=== PATIENT | female | born 1940 | race Asian ===

== ENCOUNTER 2018-06-10 09:20 | Inpatient (IN) | payer MEDICARE, OTHER ==
[~2018-06-10] VITALS: Ht 154.9 cm; Wt 68.9 kg
[~2018-06-10 09:20] MED LIST: ACAR50TA PO; ASPI-903 PO; ATOR20TA38 PO; CLON-379 PO; CLOP75TA27 PO; DOCU250C58 PO; DONE5TAB46 PO; ESCI5TAB PO; ISOS10TA2 PO; LANT3I SC; LEVO125T PO; LYR75 PO; MEMA10TA PO; METF500T PO; MULTI PO; NOVO3I SC; VALS80TA2 PO
[2018-06-10] MEDS ORDERED: SODIUM CHLORIDE 0.9% 1L BAG IV* STA (09:36)
[2018-06-10] MEDS ORDERED: MAGN400O19 PO (10:27)
[2018-06-10] MEDS ORDERED: ACET-2047 PO (10:28)
[2018-06-10] MEDS ORDERED: CEFEPIME 2GM/50 ML (PMX) 50 ML IVPB STA (10:29)
[2018-06-10] MEDS ORDERED: NEPH PO ×2 (10:29→10:31)
[2018-06-10] MEDS ORDERED: VANCOMYCIN 1 GM (PMX) 250 ML IVPB ONE (10:30)
[2018-06-10] MEDS ORDERED: CYAN100T PO (10:32)
[2018-06-10] MEDS ORDERED: ERGO500013 PO (10:33)
[2018-06-10] MEDS ORDERED: AMIN887L6 PO (10:33)
[2018-06-10] MEDS ORDERED: LINA5TAB PO (10:34)
[2018-06-10] MEDS ORDERED: CALC500T91 PO (10:34)
[2018-06-10] MEDS ORDERED: BISA-57 PO (10:35)
[2018-06-10] MEDS ORDERED: DEXL60CA2 PO (10:36)
[2018-06-10] MEDS ORDERED: DONE10TA7 PO (10:36)
[2018-06-10] MEDS ORDERED: FOLI-49 PO (10:36)
[2018-06-10] MEDS ORDERED: ISM20 PO (10:40)
[2018-06-10] MEDS ORDERED: LEVEM SUBCUTANE (10:42)
[2018-06-10] MEDS ORDERED: LEVO300T5 PO (10:42)
[2018-06-10] MEDS ORDERED: LOSA25TA12 PO (10:43)
[2018-06-10] MEDS ORDERED: NOVO3I SC (10:44)
[2018-06-10] MEDS ORDERED: ATEN-51 PO (10:45)
[2018-06-10] MEDS ORDERED: ARIP2TAB17 PO (10:45)
[2018-06-10] MEDS ORDERED: CRAN425C6 PO (10:46)
[2018-06-10] MEDS ORDERED: CLOP75TA27 PO (10:46)
--- NOTE | 2018-06-10 11:23 | ERD ---
ER Documentation Chief Complaint Chief Complaint ALOC since last night baseline AOX1 HPI 77-year-old female history of diabetes, hypertension, coronary artery disease status post CABG, hypothyroidism, hyperlipidemia, Alzheimer's disease, schizophrenia, dementia and chronic kidney disease presents to the ED via rescue ambulance from [facility] correction facility for evaluation of altered mental status. Apparently patient is usually alert, oriented x1 and able to ambulate with some assistance but today was found in bed not responsive. No documented prodrome. No vomiting or diarrhea. No fevers. Limited history is and obtained entirely from transferring paramedics and review of prior medical records as patient is unable to provide any history due to her cognitive impairment. Prehospital Accu-Chek was 52 mg/dL and 250 cc of D10 was administered without acute change in mental status. Narcan was also given without improvement. ROS All systems reviewed and are negative except as per history of present illness. Medications Home Meds Active Scripts Cephalexin* (Cephalexin*) 500 Mg Capsule, 500 MG PO BID for 3 Days, #6 CAP Prov:DEMETRIO HART MD 06/13/18 Mupirocin* (Bactroban*) 2% -22 Gram Oint...g., 1 APPLIC TOP BID for 3 Days, #1 TUB Prov:DEMETRIO HART MD 06/13/18 Doxycycline* (Vibramycin*) 100 Mg Tab, 100 MG PO BID for 3 Days, #7 TAB Prov:DEMETRIO HART MD 06/13/18 Insulin Detemir (Levemir) 100 Unit/1 Ml Vial, 20 UNITS SUBCUTANE QHS for 30 Days, #1 VIAL Prov:DEMETRIO HART MD 06/13/18 Pregabalin* (Lyrica*) 75 Mg Capsule, 75 MG PO BID for 30 Days, CAP Prov:ANA NATH 11/29/15 Reported Medications Cranberry Extract (Cranberry) 425 Mg Capsule, 425 MG PO DAILY, CAP 06/10/18 Clopidogrel Bisulfate (Clopidogrel) 75 Mg Tablet, 75 MG PO DAILY, #30 TAB 06/10/18 Atenolol* (Atenolol*) 25 Mg Tablet, 25 MG PO DAILY, #30 TAB HOLD IF SBP<115 OR HR<60 06/10/18 Aripiprazole* (Abilify*) 2 Mg Tablet, 2 MG PO QHS, #30 TAB 06/10/18 Losartan Potassium* (Losartan Potassium*) 25 Mg Tablet, 12.5 MG PO DAILY, TAB HOLD IF SBP<115 06/10/18 Levothyroxine Sodium* (Levothyroxine Sodium*) 300 Mcg Tablet, 300 MCG PO BEFORE BREAKFAST, #30 TAB 06/10/18 Isosorbide Mononitrate* (Isosorbide Mononitrate*) 20 Mg Tablet, 10 MG PO BID, TAB HOLD IF SBP<115 06/10/18 Folic Acid* (Folic Acid*) 1 Mg Tablet, 1 MG PO DAILY, TAB 06/10/18 Donepezil* (Donepezil*) 10 Mg Tablet, 10 MG PO DAILY, #30 TAB 06/10/18 Dexlansoprazole (Dexilant) 60 Mg Cap..mp, 60 MG PO AC BREAKFAST, #30 CAP 06/10/18 Bisacodyl* (Dulcolax*) 5 Mg Tablet.dr, 10 MG PO DAILY PRN for CONSTIPATION, TAB 06/10/18 Linagliptin (TRADJENTA) 5 Mg Tablet, 5 MG PO DAILY, TAB 06/10/18 Calcium Carbonate ([id number]) 500 Mg Tablet, 500 MG PO DAILY, TAB 06/10/18 Amino Acids/Protein Hydrolys (PRO-STAT AWC LIQUID) 887 Ml Liquid, 30 ML PO DAILY 06/10/18 Ergocalciferol (Vitamin D2) (VITAMIN D2) 50,000 Unit Capsule, 44254 UNIT PO WEEKLY, CAP 06/10/18 Cyanocobalamin* (Vitamin B12*) 100 Mcg Tab, 200 MCG PO DAILY, TAB 06/10/18 Multivit/Ca Carb/B Cmplx/Fa* (Pili-Remberto*) 1 Tab Tab, 1 TAB PO DAILY, TAB 06/10/18 Acetaminophen* (Acetaminophen*) 650 Mg Tablet, 650 MG PO Q4 PRN for PAIN, #30 TAB 06/10/18 Magnesium Hydroxide* (Milk Of Magnesia*) 400 Mg/5 Ml Oral.susp, 30 ML PO DAILY PRN for CONSTIPATION, ML 06/10/18 Atorvastatin Calcium* (Atorvastatin Calcium*) 20 Mg Tablet, 20 MG PO QHS, #30 TAB 11/27/15 Acarbose* (Precose*) 50 Mg Tablet, 50 MG PO WITH MEALS, TAB 11/27/15 Discontinued Reported Medications Insulin Aspart* (Novolog Insulin Pen*) 100 Unit/Ml Soln, 0 SC .SLIDING SCALE AC, EA 06/10/18 Multivit/Ca Carb/B Cmplx/Fa* (Pili-Remberto*) 1 Tab Tab, 1 TAB PO DAILY, TAB 06/10/18 Clopidogrel Bisulfate (Clopidogrel) 75 Mg Tablet, 75 MG PO DAILY, #30 TAB 11/27/15 Memantine* (Namenda*) 10 Mg Tablet, 10 MG PO BID, #60 TAB 11/27/15 Escitalopram Oxalate* (Lexapro*) 5 Mg Tablet, 5 MG PO DAILY, #30 TAB 11/27/15 Insulin Aspart* (Novolog Insulin Pen*) 100 Unit/Ml Soln, 0 SC .SLIDING SCALE AC, EA 11/27/15 Docusate Sodium* (Colace*) 250 Mg Capsule, 250 MG PO BID, #60 CAP 11/27/15 Aspirin* (Aspirin* Chew) 81 Mg Tab.chew, 81 MG PO DAILY, TAB.CHEW 11/27/15 Clonidine Hcl* (Clonidine Hcl*) 0.1 Mg Tab, 0.1 MG PO Q6 PRN for ELEVATED BLOOD PRESSURE, TAB 11/27/15 Isosorbide Dinitrate* (Isordil*) 10 Mg Tablet, 30 MG PO BID, TAB 11/27/15 Donepezil* (Aricept*) 5 Mg Tablet, 5 MG PO DAILY, TAB 11/27/15 Valsartan* (Diovan*) 80 Mg Tablet, 80 MG PO DAILY, TAB 11/27/15 Discontinued Scripts Insulin Glargine* (Lantus*) 100 Unit/Ml Soln, 28 UNIT SC QHS for 30 Days Prov:FITO WHEELER NP 12/01/15 Insulin Aspart* (Novolog Insulin Pen*) 100 Unit/Ml Soln, 0 UNIT SC WITH MEALS BEDTIME for 30 Days Prov:ANA NATH 11/29/15 Levothyroxine Sodium* (Synthroid*) 125 Mcg Tablet, 125 MCG PO DAILY@06 for 30 Days, TAB Prov:ANA NATH 11/29/15 Metformin Hcl (Glucophage) 500 Mg Tablet, 500 MG PO AC BREAKFAST DINNER for 30 Days, TAB Prov:ANA NATH 11/29/15 Multivitamins* (Theragran*) 1 Tab Tab, 1 TAB PO QHS for 30 Days, TAB Prov:ANA NATH 11/29/15 Allergies Allergies: Coded Allergies: propranolol (Verified Allergy, Severe, 06/10/18) PMhx/Soc Reviewed reviewed in chart. As per HPI. History of Surgery: Yes (CABG) Anesthesia Reaction: No Hx Neurological Disorder: Yes (dementia) Hx Respiratory Disorders: No Hx Cardiac Disorders: Yes Hx Psychiatric Problems: Yes Hx Miscellaneous Medical Probl: Yes (CAD s/p CABG, , hypothyroidism, HTN, Diabetes, Depression) Hx Alcohol Use: No Hx Substance Use: No Hx Tobacco Use: No Smoking Status: Never smoker FmHx Unknown. Unobtainable due to patient's cognitive impairment. Physical Exam Vitals Temperature 94.7. Pulse 70. Respirations 16. Blood pressure 163/73. O2 saturation 96% on room air. Physical Exam Const: Sleepy but opens her eyes to voice. Does not follow commands. Head: Atraumatic Eyes: Normal Conjunctiva ENT: Normal External Ears, Nose and Mouth. Neck: Nontender. No meningismus. No JVD. No meningismus. Resp: Clear to auscultation bilaterally Cardio: Regular rate and rhythm, no murmurs Abd: Soft, non tender, non distended. Normal bowel sounds. No rebound or guarding. No masses. Skin: No petechiae or rashes mild erythema. On both heels. Back: No midline or flank tenderness Ext: No cyanosis, or edema Neur: Sleepy but arousable. Does not follow commands. Moves all extremities spontaneously. Result Diagram: 06/12/1852506/12/18525 Results 24 hrs Laboratory Tests Test 06/10/18 09:46 06/10/18 09:48 06/10/18 10:05 06/10/18 10:35 POC Venous Lactate 2.4 mmol/L Bedside Glucose 204 mg/dL 189 mg/dL White Blood Count 5.0 10^3/ul Red Blood Count 4.32 10^6/ul Hemoglobin 12.1 g/dl Hematocrit 37.7 % Mean Corpuscular 87.3 fl Volume Mean Corpuscular 28.0 pg Hemoglobin Mean Corpuscular 32.1 g/dl Hemoglobin Concent Red Cell 12.7 % Distribution Width Platelet Count 119 10^3/UL Mean Platelet 10.3 fl Volume Immature 0.400 % Granulocytes % Neutrophils % 53.6 % Lymphocytes % 36.1 % Monocytes % 8.7 % Eosinophils % 1.0 % Basophils % 0.2 % Nucleated Red 0.0 /100WBC Blood Cells % Immature 0.020 10^3/ul Granulocytes # Neutrophils # 2.7 10^3/ul Lymphocytes # 1.8 10^3/ul Monocytes # 0.4 10^3/ul Eosinophils # 0.1 10^3/ul Basophils # 0.0 10^3/ul Nucleated Red 0.0 10^3/ul Blood Cells # Prothrombin Time 12.6 Sec Prothrombin Time 1.0 Ratio INR International 0.93 Normalized Ratio Activated 28.[address] Time Urine Color STRAW Urine Clarity CLEAR Urine pH 7.0 Urine Specific 1.002 [place] Urine Ketones NEGATIVE mg/dL Urine Nitrite NEGATIVE mg/dL Urine Bilirubin NEGATIVE mg/dL Urine Urobilinogen NEGATIVE mg/dL Urine Leukocyte NEGATIVE Aneta/ul Esterase Urine Microscopic 0 /HPF RBC Urine Microscopic 2 /HPF WBC Urine Bacteria FEW /HPF Urine Hemoglobin NEGATIVE mg/dL Urine Glucose 3+ mg/dL Urine Total NEGATIVE mg/dl Protein Sodium Level 138 mmol/L Potassium Level 3.7 mmol/L Chloride Level 101 mmol/L Carbon Dioxide 26 mmol/L Level Anion Gap 11 Blood Urea 31 mg/dl Nitrogen Creatinine 1.20 mg/dl Est Glomerular mL/min Filtrat Rate mL/min Glucose Level 216 mg/dl Calcium Level 9.6 mg/dl Total Bilirubin 0.2 mg/dl Direct Bilirubin 0.00 mg/dl Indirect Bilirubin 0.2 mg/dl Aspartate Amino 26 IU/L Transf (AST/SGOT) Alanine 12 IU/L Aminotransferase ( ALT/SGPT) Alkaline 77 IU/L Phosphatase Troponin I < 0.012 ng/ml Total Protein 7.1 g/dl Albumin 3.9 g/dl Globulin 3.20 g/dl Albumin/Globulin 1.21 Ratio Free Thyroxine 3.26 ug/ml Index Thyroxine (T4) 9.3 ug/dl Triiodothyronine 35.1 % (T3) Uptake Test 06/10/18 12:32 06/10/18 12:33 POC Venous Lactate 1.8 mmol/L Bedside Glucose 151 mg/dL Current Medications Medications Dose Sig/Kandy Start Time Status Last (Trade) Ordered Route PRN Stop Time Admin Dose Reason Admin Sodium 2,430 ml BOLUS OVER 2 06/10/18 DC 06/10/18 Chloride HOURS STAT 09:36 10:43 (NS) IV* 06/10/18 09:39 Cefepime HCl 50 ml @ ONCE STAT 06/10/18 DC 06/10/18 100 mls/hr IVPB 10:29 10:41 06/10/18 10:58 Vancomycin 250 ml @ ONCE ONCE 06/10/18 DC 06/10/18 HCl 125 mls/hr IVPB 10:30 12:15 06/10/18 12:29 Ondansetron 4 mg ER BRIDGE 06/10/18 DC HCl (Zofran PRN IV 13:00 Inj) NAUSEA AND/OR 06/10/18 14:24 VOMITING 650 mg ER BRIDGE 06/10/18 DC Acetaminophen PRN PO MILD 13:00 (Tylenol PAIN(1-3)OR 06/10/18 14:24 Tab) ELEVATED TEMP Potassium 1,000 ml @ [id number] IV 06/10/18 DC Chloride/Dext 80 mls/hr 12:58 isaiah/ Sod Cl 06/10/18 13:19 IV Flush 3 ml PER 06/10/18 DC (NS 3 ml) PROTOCOL IV 13:00 06/13/18 16:36 Ondansetron 4 mg Q6H PRN 06/10/18 DC HCl (Zofran IV NAUSEA 13:00 Inj) AND/OR 06/13/18 16:36 VOMITING Morphine 2 mg Q4H PRN 06/10/18 DC Sulfate IV SEVERE 13:00 (morphine) PAIN LEVEL 06/13/18 16:36 7-10 Discontinue ONCE ONCE 06/10/18 DC Miscellaneous current oral XX 13:00 sulfonylur... 06/10/18 13:09 Information (* Miscellaneous Pharmacy Order) ONCE ONCE 06/10/18 DC Miscellaneous HYPOGLYCEMIA XX 13:00 PROTOCOL 06/10/18 13:09 Information w... (* Miscellaneous Pharmacy Order) Insulin NOVOLOG Q4 SC 06/10/18 DC 06/11/18 Aspart *MILD* 13:00 20:57 (Novolog ALGORI... 06/12/18 05:41 Insulin Pen) Discontinue ONCE ONCE 06/10/18 DC Miscellaneous all previ... XX 13:00 06/10/18 13:09 Information (* Miscellaneous Pharmacy Order) 1 ea NOTE XX 06/10/18 DC Miscellaneous 13:30 Information 06/13/18 16:36 Glucose 15 gm Q15M PRN 06/10/18 DC (Glutose) PO DECREASED 13:30 GLUCOSE 06/13/18 16:36 Glucose 22.5 gm Q15M PRN 06/10/18 DC (Glutose) PO DECREASED 13:30 GLUCOSE 06/13/18 16:36 Dextrose 25 ml Q15M PRN 06/10/18 DC (D50w IV DECREASED 13:30 Syringe) GLUCOSE 06/13/18 16:36 Dextrose 50 ml Q15M PRN 06/10/18 DC (D50w IV DECREASED 13:30 Syringe) GLUCOSE 06/13/18 16:36 Glucagon 1 mg Q15M PRN 06/10/18 DC (Glucagen) IM DECREASED 13:30 GLUCOSE 06/13/18 16:36 Glucose 15 gm Q15M PRN 06/10/18 DC (Glutose) BUCCAL 13:30 DECREASED 06/13/18 16:36 GLUCOSE Sodium 1,000 ml @ Q20H IV 06/10/18 DC 06/12/18 Chloride 50 mls/hr 13:30 13:12 06/13/18 16:36 Bisacodyl 10 mg DAILY PRN 06/10/18 DC (Dulcolax) PO 13:30 CONSTIPATION 06/13/18 16:36 Magnesium 30 ml DAILY PRN 06/10/18 DC Hydroxide PO 13:30 (Milk Of Mag) CONSTIPATION 06/13/18 16:36 Procedures/MDM DOCUMENTS REVIEWED: ED nurse, prior ED, prior records EKG: Time: 10:25. Normal sinus rhythm. Ventricular rate 62. Normal NH QRS. No acute ST segment elevation or depression. Prolonged QT interval. No ectopy. Interpretation is limited due to baseline artifact. My Interpretation IMAGING: PROCEDURE: Chest x-ray CLINICAL INDICATION: Possible sepsis. TECHNIQUE: VIEWS: 1 COMPARISON: CR CHEST 11/27/2015 FINDINGS: SUPPORT DEVICES: None. CARDIAC AND MEDIASTINAL SILHOUETTES: Cardiomegaly with aortic atherosclerotic calcifications . Median sternotomy with post CABG changes. LUNGS AND PLEURAL SPACE: No infiltrates, consolidation, pulmonary edema or pleural effusion. PNEUMOTHORAX: None. OSSEOUS STRUCTURES: Unremarkable. IMPRESSION: 1. No acute pulmonary disease. 2. Stable cardiomegaly with aortic atherosclerosis and post CABG changes. RPTAT: HRSR Physician Jennyfer Date Time Electronically viewed and signed by Palak Liang Physician on 06/10/2018 10:30 RR/ PROCEDURE: CT Brain without contrast. CLINICAL INDICATION: Altered level of consciousness TECHNIQUE: A CT of the brain was performed on a [employer] 64-slice CT scanner utilizing axial imaging from the skull base through the vertex without IV contrast. Images were reviewed on a PACS workstation. The CTDIvol is 39 mGy and the DLP is 634 mGycm. DICOM images are available. One or more of the following dose reduction techniques were utilized: 1.) Automated exposure control 2.) Adjustment of the mA +/- kV according to patient's size 3.) Use of iterative reconstruction technique. COMPARISON: Are head CT November 27, 2015 FINDINGS: There is mild to moderate diffuse cerebral volume loss with sulcal and ventricular dilatation. No discrete extra-axial fluid collection or masses present. Ventricles are in the midline and of normal configuration. There is mild periventricular white matter disease in both cerebral hemispheres. No associated mass effect is seen. There is preservation of normal esposito-white differentiation. No intracranial hemorrhage is noted. There is normal aeration in the visualized paranasal sinuses. IMPRESSION: Atrophy. White matter disease compatible with chronic small vessel ischemia. No intracranial hemorrhage, mass or evidence of acute transcortical infarct. .Jakob Grady MD, MD Date Time Electronically viewed and signed by .Jakob Grady MD, on 06/10/2018 11:03 .A/ [employer] MAKIN-year-old female history of diabetes, hypertension, coronary artery disease status post CABG, hypothyroidism, hyperlipidemia, Alzheimer's disease, schizophrenia, dementia and chronic kidney disease presents to the ED via rescue ambulance from [facility] for evaluation of altered mental status. Prehospital blood sugar was 52 mg/dL but there was no improvement with D10 250 cc IV or Narcan. CBC is unremarkable for leukocytosis or anemia. Chemistry reveals elevated BUN/creatinine of 31/1.2 but no electrolyte abnormalities or acidosis. Lactate elevated to 2.4 mmol/L. Chest x-ray is negative for pneumonia and congestive heart failure. EKG is negative for ischemic changes, heart block or dysrhythmias. Urinalysis reveals 2 WBCs and few bacteria. Culture is pending. CT of the brain to evaluate for infarct, hemorrhage, mass and hydrocephalus reveals atrophy but is otherwise unremarkable. Patient with a history of dementia presents with acute change in mental status secondary to acute encephalopathy likely toxic/metabolic. Hypoglycemia resolved with IV D10. Hypothermia treated with rewarming. No leukocytosis, tachycardia, tachypnea or criteria for systemic inflammatory response syndrome. Lactate however was elevated. Normal saline 30 cc/kg fluid bolus was given and broad spectrum antibiotics after cultures. Repeat lactate was down to 1.8 mmol/L. Occult infectious source is likely urinary tract infection. Presentation not consistent with CVA/TIA. Admit to telemetry for further evaluation and management. CRITICAL CARE TIME: Due to the high probability of sudden clinically significant cardiovascular, hemodynamic, metabolic and neurologic deterioration, this patient with hypothermia, hypoglycemia, elevated lactic acid and acute encephalopathy required multiple, frequent reevaluations of vital signs and response to therapy. Additional critical care time was spent in extensive review of prior medical records, interpretation of relevant clinical data as well as arranging for admission and ongoing care. TOTAL CRITICAL CARE TIME: 35 minutes not including other separately reportable procedures. PATIENT CARE TRANSITIONED: Time: 12:31, Dr. Colbert. Counseled [patient and family] regarding diagnosis, diagnostic results and plan for admission. Departure Diagnosis: Primary Impression: Acute encephalopathy Additional Impressions: Hypothermia Encounter type: initial encounter Qualified Codes: T68.XXXA - Hypothermia, initial encounter Hypoglycemia Elevated lactic acid level Diabetes mellitus type 2 in obese Condition: Serious YAHAIRA STACK MD Jun 10, 2018 11:23
[2018-06-10] MEDS ORDERED: D5W-0.45 NACL + KCL 20 MEQ 1,000 ML IV SCH (12:58)
[2018-06-10] MEDS ORDERED: ACETAMINOPHEN 325 MG TAB PO PRN (13:00)
[2018-06-10] MEDS ORDERED: ONDANSETRON 4 MG INJ IV PRN ×2 (13:00)
[2018-06-10] MEDS: INSULIN ASPART [NOVOLOG] 3 ML PEN SC SCH ×3 (13:00→21:45)
[2018-06-10] MEDS ORDERED: morphine 4 MG/ML VIAL IV PRN (13:00)
[2018-06-10] MEDS ORDERED: NACL 0.9% 3 ML SYG IV SCH (13:00)
--- NOTE | 2018-06-10 13:27 | HP ---
Date/Time of Note Date/Time of Note DATE: 06/10/18 TIME: 13:19 Assessment/Plan VTE Prophylaxis SCD applied (from Nsg): Yes Pharmacological prophylaxis: NA/contraindicated Pharm contraindication: renal impairment Lines/Catheters IV Catheter Type (from Nrsg): Saline Lock Assessment/Plan Hospital Course 1. Acute metabolic/toxic encephalopathy on chronic dementia likely secondary to hypoglycemia and/or occult infection Patient was hypoglycemic at the nursing facility but sugars have since stabilized Patient's mentation appears to be at baseline per family Patient with persistent hypothermia, continue warm blanket, no evidence of sepsis but will treat with empiric Rocephin for possible UTI Follow-up on cultures Resume Lantus but at decreased dose, NovoLog sliding scale 2. History of diabetes Resume Lantus but at decreased dose secondary to hyperglycemia Check A1c 3. Progressive dementia Patient resides in a assisted facility Continue home Aricept 4. Hypothyroidism Continue home Synthroid 5. Hypertension Continue home meds 6. History of coronary disease Resume home meds Prophylaxis: SCDs Result Diagram: 06/10/18 1005 06/10/18 1005 Results 24hrs Laboratory Tests Test 06/10/18 09:46 06/10/18 09:48 06/10/18 10:05 06/10/18 10:35 POC Venous Lactate 2.4 *H Bedside Glucose 204 189 White Blood Count 5.0 Red Blood Count 4.32 # Hemoglobin 12.1 Hematocrit 37.7 # Mean Corpuscular 87.3 Volume Mean Corpuscular 28.0 L Hemoglobin Mean Corpuscular 32.1 Hemoglobin Concent Red Cell 12.7 Distribution Width Platelet Count 119 L Mean Platelet Volume 10.3 # Immature 0.400 Granulocytes % Neutrophils % 53.6 Lymphocytes % 36.1 Monocytes % 8.7 Eosinophils % 1.0 Basophils % 0.2 Nucleated Red Blood 0.0 Cells % Immature 0.020 Granulocytes # Neutrophils # 2.7 Lymphocytes # 1.8 Monocytes # 0.4 Eosinophils # 0.1 Basophils # 0.0 Nucleated Red Blood 0.0 Cells # Prothrombin Time 12.6 Prothrombin Time 1.0 Ratio INR International 0.93 Normalized Ratio Activated 28.1 Partial Thromboplast Time Urine Color STRAW Urine Clarity CLEAR Urine pH 7.0 Urine Specific 1.002 L [place] Urine Ketones NEGATIVE Urine Nitrite NEGATIVE Urine Bilirubin NEGATIVE Urine Urobilinogen NEGATIVE Urine Leukocyte NEGATIVE Esterase Urine Microscopic 0 RBC Urine Microscopic 2 WBC Urine Bacteria FEW A Urine Hemoglobin NEGATIVE Urine Glucose 3+ H Urine Total Protein NEGATIVE Sodium Level 138 Potassium Level 3.7 Chloride Level 101 Carbon Dioxide Level 26 Anion Gap 11 Blood Urea Nitrogen 31 H Creatinine 1.20 H Est Glomerular Filtrat Rate mL/min Glucose Level 216 Calcium Level 9.6 Total Bilirubin 0.2 Direct Bilirubin 0.00 Indirect Bilirubin 0.2 Aspartate Amino 26 Transf (AST/SGOT) Alanine 12 L Aminotransferase (AL T/SGPT) Alkaline Phosphatase 77 Troponin I < 0.012 Total Protein 7.1 Albumin 3.9 Globulin 3.20 Albumin/Globulin 1.21 Ratio Free Thyroxine Index 3.26 Thyroxine (T4) 9.3 Triiodothyronine 35.1 (T3) Uptake Test 06/10/18 12:32 06/10/18 12:33 POC Venous Lactate 1.8 Bedside Glucose 151 HPI/ROS Admit Date/Time Admit Date/Time June 10, 2018 Hx of Present Illness Patient is a 77-year-old female with a history of progressive dementia, CKD, coronary disease status post CABG, diabetes, hypothyroidism, TIA. Patient resides in a assisted facility and was noted to be altered relative to her baseline, blood sugar was checked and patient was hypoglycemic at 40. Patient was given juice and sugars did stabilize as that her mentation. In the ER sugars have remained stable patient is hypothermic and heating blankets have been placed. Patient is unable to provide any history and history is obtained from previous recommendation and family who is bedside. Patient has no evidence of sepsis, UA is normal as is CT head and chest x-ray. ROS Confused PMH/Family/Social Past Medical History As per HPI Medications Current Medications Ondansetron HCl (Zofran Inj) 4 mg ER BRIDGE PRN IV NAUSEA AND/OR VOMITING; Start 06/10/18 at 13:00; Stop 06/11/18 at 12:59 Acetaminophen (Tylenol Tab) 650 mg ER BRIDGE PRN PO MILD PAIN(1-3)OR ELEVATED TEMP; Start 06/10/18 at 13:00; Stop 06/11/18 at 12:59 Potassium Chloride/Dextrose/ Sod Cl 1,000 ml @ 80 mls/hr [id number] IV ; Start 06/10/18 at 12:58 IV Flush (NS 3 ml) 3 ml PER PROTOCOL IV ; Start 06/10/18 at 13:00 Ondansetron HCl (Zofran Inj) 4 mg Q6H PRN IV NAUSEA AND/OR VOMITING; Start 06/10/18 at 13:00 Morphine Sulfate (morphine) 2 mg Q4H PRN IV SEVERE PAIN LEVEL 7-10; Start 06/10/18 at 13:00 Ceftriaxone Sodium 50 ml @ 100 mls/hr Q24H IVPB ; Start 06/10/18 at 18:00 Diagnostic Test (Pha) (Accu-Chek) 1 ea 02 XX ; Start 06/11/18 at 02:00 Insulin Glargine (Lantus) 16 units DAILY@2000 SC ; Start 06/10/18 at 20:00 Insulin Aspart (Novolog Insulin Pen) NOVOLOG *MILD* ALGORI... Q4 SC ; Start 06/10/18 at 13:00 Miscellaneous Information 1 ea NOTE XX ; Start 06/10/18 at 13:30 Glucose (Glutose) 15 gm Q15M PRN PO DECREASED GLUCOSE; Start 06/10/18 at 13:30 Glucose (Glutose) 22.5 gm Q15M PRN PO DECREASED GLUCOSE; Start 06/10/18 at 13:30 Dextrose (D50w Syringe) 25 ml Q15M PRN IV DECREASED GLUCOSE; Start 06/10/18 at 13:30 Dextrose (D50w Syringe) 50 ml Q15M PRN IV DECREASED GLUCOSE; Start 06/10/18 at 13:30 Glucagon (Glucagen) 1 mg Q15M PRN IM DECREASED GLUCOSE; Start 06/10/18 at 13:30 Glucose (Glutose) 15 gm Q15M PRN BUCCAL DECREASED GLUCOSE; Start 06/10/18 at 13:30 Coded Allergies: propranolol (Verified Allergy, Severe, 06/10/18) Family History Significant Family History: no pertinent family hx Social History Alcohol Use: none Smoking Status: Never smoker Drug Use: none Exam/Review of Systems Vital Signs Vitals Vital Signs Date Temp Pulse Resp B/P (MAP) Pulse Ox O2 O2 Flow FiO2 Time Delivery Rate 06/10/18 95.3 61 18 175/67 99 Room Air 11:53 (103) Exam Psych: confusion Respiratory: clear to auscultation Cardiovascular: regular rate and rhythm Gastrointestinal: soft; No distended Musculoskeletal: nl extremities to inspection ROLDAN RUBIN Jun 10, 2018 13:27
[2018-06-10] MEDS ORDERED: GLUCOSE GEL 15 GRAM TUBE PO PRN ×2 (13:30)
[2018-06-10] MEDS ORDERED: GLUCAGON 1 MG INJ IM PRN (13:30)
[2018-06-10] MEDS ORDERED: DEXTROSE 50% 50 ML SYRINGE IV PRN ×2 (13:30)
[2018-06-10] MEDS ORDERED: BISACODYL (EC) 5 MG TAB PO PRN (13:30)
[2018-06-10] MEDS: SOD CHLORIDE 0.45% 1,000 ML IV SCH ×2 (13:30→16:42)
[2018-06-10] MEDS ORDERED: MAGNESIUM HYDROXIDE 30ML CUP PO PRN (13:30)
[2018-06-10] MEDS ORDERED: GLUCOSE GEL 15 GRAM TUBE BUCCAL PRN (13:30)
[2018-06-10 15:08] VITALS: BP 172/72; PULSE 78; RESP 18
--- NOTE | 2018-06-10 15:28 | NUR ---
RN NOTES Pt failed ED swallow eval, on admission pt had pureed nectar thin liq. ordered. RN did bedside swallow eval and pt passed w/o any difficulty. Pureed nectar thin given for dinner however per family pt tolerates regular consistency at the [facility]. RN relayed information to Dr. Colbert, per advance diet to Carb cont. RN to carry out orders and monitor closely.
[2018-06-10 15:33] VITALS: PULSE 84
[2018-06-10 15:59] VITALS: Ht 154.9 cm; Wt 68.9 kg
[2018-06-10 16:01] VITALS: PULSE 78
[2018-06-10] MEDS: CEFTRIAXONE 1 GM/50 ML (PMX) 50 ML IVPB SCH (17:48)
[2018-06-10] MEDS: ACARBOSE 50 MG TAB PO SCH (18:03)
--- NOTE | 2018-06-10 19:27 | NUR ---
EOSS STABLE, NO ACUTE EVENTS SINCE ADMISSION, WILL ENDORSE ACCORDINGLY TO NIGHT RN
[2018-06-10 19:29] VITALS: BP 146/65; PULSE 69; RESP 17
[2018-06-10] MEDS ORDERED: INSULIN GLARGINE [LANTus] (100 UNITS/ML) SYG SC SCH (20:00)
[2018-06-10 20:01] VITALS: PULSE 68
[2018-06-10] MEDS: ISOSORBIDE MONONITRATE 20 MG TAB PO SCH (21:00)
[2018-06-10] MEDS: PREGABALIN 75 MG CAP PO SCH (21:00)
[2018-06-10] MEDS: ARIPIPRAZOLE 2 MG TAB PO SCH (21:00)
[2018-06-10] MEDS: ATORVASTATIN 20 MG TAB PO SCH (21:00)
[2018-06-10] MEDS: INSULIN GLARGINE [LANTus] (100 UNITS/ML) SYG SC SCH (21:39)
[2018-06-10 23:29] VITALS: BP 148/68; PULSE 77; RESP 18
[2018-06-11] VITALS (10 sets, daily range): BP systolic 104–145; BP diastolic 52–78; PULSE 60–78; RESP 16–19
[2018-06-11] MEDS: INSULIN ASPART [NOVOLOG] 3 ML PEN SC SCH ×6 (01:00→20:57)
[2018-06-11] MEDS: ACCU-CHEK XX SCH (01:56)
[2018-06-11] MEDS: LEVOTHYROXINE 100 MCG TAB PO SCH (06:45)
--- NOTE | 2018-06-11 07:49 | NUR ---
RN NOTES: PT FAIL BEDSIDE SWALLOW IN ER. ORDER FROM DR. MCBRIDE TO KEEP NPO AND ST EVAL IN AM. AWARE PT IS DIABETIC AND ON IVF. B/S CHECKS Q4HRS, AWARE B/S AT 2100, 0100, 0500 ARE 177, 120, 90. PHOTOS TAKEN ON SKIN ON ASSESSMENT. VS STABLE. NIH DOME SCORE 4, PT ABLE TO FOLLOW COMMAND. MORE WEAKNESS ON LEFT ARM AND LEFT LEG. DAUGHTER REPORTED PT MULTIPLE FALLS IN [facility]. SPOKE TO CHARGE NURSE, REPLACED ROOM CLOSE TO NURSE STATION TO MONITOR CLOSELY FOR PT'S SAFETY. PT SPOKE MORE TOWARDS AM, TAGALO. DAUGHTER ALSO MENTIONED PT IS MORE WANDERING EARLY IN AM IN [facility]. FULL UPPER DENTURE ON PT ONLY. DAUGHTER SAID SHE LEFT LOWER FULL DENTURE AT HOME. ENDORSED.
[2018-06-11] MEDS: ACARBOSE 50 MG TAB PO SCH ×3 (07:55→17:05)
[2018-06-11] MEDS: FOLIC ACID 1 MG TAB PO SCH (09:00)
[2018-06-11] MEDS: CYANOCOBALAMIN 100 MCG TAB PO SCH (09:00)
[2018-06-11] MEDS: MULTIVIT/CA CARB/B CMPLX/FA TAB PO SCH (09:00)
[2018-06-11] MEDS: ISOSORBIDE MONONITRATE 20 MG TAB PO SCH ×2 (09:00→20:53)
[2018-06-11] MEDS: LOSARTAN 25 MG TAB PO SCH (09:00)
[2018-06-11] MEDS: CALCIUM CARBONATE 1.25 GM TAB PO SCH (09:00)
[2018-06-11] MEDS: ATENOLOL 25 MG TAB PO SCH (09:00)
[2018-06-11] MEDS: CLOPIDOGREL 75 MG TAB PO SCH (09:00)
[2018-06-11] MEDS: PREGABALIN 75 MG CAP PO SCH ×2 (09:00→20:53)
[2018-06-11] MEDS: DONEPEZIL 10 MG TAB PO SCH (09:00)
[2018-06-11] MEDS: SOD CHLORIDE 0.45% 1,000 ML IV SCH ×2 (09:30→14:36)
--- NOTE | 2018-06-11 14:16 | NUR ---
RN Notes Received pt in am NPO d/t to pt failing the ED swallow eval. RN relayed situation to Dr. Colbert and inquired how MD wanted to proceed w/ the situation. Per MD, restart Carb controlled diet. RN reassesed bedside swallow eval and once again pt tolerated procedure and passed w/o difficulty. RN informed Dr. Colbert and MD confirmed order to restart carb controlled diet. RN to carry out order and will continue to monitor closely.
--- NOTE | 2018-06-11 15:06 | CONS ---
Date/Time of Note Date/Time of Note DATE: 06/11/18 TIME: 14:47 Assessment/Plan Assessment/Plan Hospital Course ID INITIAL NOTE => Please refer to Dr. Jim full consult note dictation pending capacitor assembler from today. CURRENT ABX: DAY #2 Ceftriaxone 06/11/18 0605 06/11/18 0552 24H INTERVAL SUMMARY * Awake, alert, responsive, pleasantly confused w/dementia, independently eating lunch without difficulty. * No fevers -- had been hypothermic now resolved, VSS, NAD * She wants to tell me about "the place I was before for 1-month ... it was yellow." Not sure if she is referring to the place or her urine ? * 06/10/18 CXR: IMPRESSION:1. No acute pulmonary disease. 2. Stable cardiomegaly with aortic atherosclerosis and post CABG changes. * 06/10/18 CT BRAIN: IMPRESSION:Atrophy. White matter disease compatible with chronic small vessel ischemia. No intracranial hemorrhage, mass or evidence of acute transcortical infarct. MICRO * 06/10/18 (?)MRSA Nares -> Pending * 06/10/18 BCx (-) * 06/10/18 URINE CX (+)GNR->URINE CULTURE Preliminary Organism 1 GRAM NEGATIVE PANKAJ COLONY COUNT >100,000 CFU/ml PHYSICAL EXAMINATION: GENERAL: Afebrile, VSS, overweight F, pleasantly confused HEENT: AT, NC, anicteric, moist oral membranes NECK: Supple, increased neck circumference CHEST: Equal chest rise bilaterally, without dyspnea on observation HEART: Pulse RRR ABDOMEN: Soft EXTREMITIES: Warm, dry SKIN: No rash, no diaphoresis ID ASSESSMENT 77 yo F w/ senile dementia admit with: 1. SIRS vs early sepsis w/TMax 100.4-> Now hypothermic, HR 84, leukocytosis, venous lactate 2.4, and acute AMS on admission due to #2 2. GNR complicated UTI -- currently has new FC placed in ED 3 Acute metabolic/toxic encephalopathy on chronic dementia likely secondary to occult infection + hypoglycemic episode @ SNF 4. Diabetes w/A1c 7.4 5. Acute renal insufficiency w/S.Creatinine @ 2.4 on admission -- down to 0.86 today w/fluids + ABX 6. HTN 7. Hypothyroidism 8. History of coronary disease/ prior remote CABG ( ?)MRSA Nares ->in process ABX ALLERGIES: None to ABX INVASIVES: PIV, FC CURRENT ABX: DAY #2 Ceftriaxone ID RECOMMENDATIONS/PLAN: Appreciate Dr. Colbert consult -- plan is for Dr. Jim to change IV ABX to Merrem . Result Diagram: 06/11/18 0605 06/11/18 0552 Results 24hrs Laboratory Tests Test 06/10/18 16:07 06/10/18 18:01 06/10/18 21:22 06/11/18 01:55 Lactic Acid Level 1.7 Bedside Glucose 88 177 120 Test 06/11/18 05:41 06/11/18 05:52 06/11/18 06:04 06/11/18 06:05 Bedside Glucose 90 Sodium Level 138 Potassium Level 4.8 Chloride Level 105 Carbon Dioxide Level 23 Anion Gap 10 Blood Urea Nitrogen 21 H Creatinine 0.86 Est Glomerular Filtrat Rate mL/min Glucose Level 87 # Calcium Level 8.9 Phosphorus Level 3.1 Magnesium Level 1.9 Hemoglobin A1c 7.4 H White Blood Count 12.2 #H Red Blood Count 4.19 L Hemoglobin 11.9 L Hematocrit 36.0 L Mean Corpuscular 85.9 Volume Mean Corpuscular 28.4 L Hemoglobin Mean Corpuscular 33.1 Hemoglobin Concent Red Cell 12.7 Distribution Width Platelet Count 95 #L Mean Platelet Volume 11.0 H Immature 0.400 Granulocytes % Neutrophils % 80.6 H Lymphocytes % 12.9 L Monocytes % 5.6 Eosinophils % 0.3 Basophils % 0.2 Nucleated Red Blood 0.0 Cells % Immature 0.050 H Granulocytes # Neutrophils # 9.8 H Lymphocytes # 1.6 Monocytes # 0.7 Eosinophils # 0.0 Basophils # 0.0 Nucleated Red Blood 0.0 Cells # Test 06/11/18 08:25 06/11/18 11:36 Bedside Glucose 84 111 Consultation Date/Type/Reason Admit Date/Time Jun 10, 2018 at 14:22 Initial Consult Date Exam/Review of Systems Vital Signs Vitals Vital Signs Date Temp Pulse Resp B/P (MAP) Pulse Ox O2 O2 Flow FiO2 Time Delivery Rate 06/11/18 60 12:03 06/11/18 98.8 18 135/78 98 Room Air 11:36 (97) Intake and Output 06/10/18 06/10/18 06/11/18 1515:00 23:00 07:00 IntakeIntake Total 2730 ml BalanceBalance 2730 ml Medications Medications Current Medications IV Flush (NS 3 ml) 3 ml PER PROTOCOL IV ; Start 06/10/18 at 13:00 Ondansetron HCl (Zofran Inj) 4 mg Q6H PRN IV NAUSEA AND/OR VOMITING; Start 06/10/18 at 13:00 Morphine Sulfate (morphine) 2 mg Q4H PRN IV SEVERE PAIN LEVEL 7-10; Start 06/10/18 at 13:00 Ceftriaxone Sodium 50 ml @ 100 mls/hr Q24H IVPB Last administered on 06/10/18at 17:48; Admin Dose 100 MLS/HR; Start 06/10/18 at 18:00 Diagnostic Test (Pha) (Accu-Chek) 1 ea 02 XX Last administered on 06/11/18at 01:56; Admin Dose 1 EA; Start 06/11/18 at 02:00 Insulin Aspart (Novolog Insulin Pen) NOVOLOG *MILD* ALGORI... Q4 SC Last administered on 06/10/18at 21:45; Admin Dose 1 UNIT; Start 06/10/18 at 13:00 Miscellaneous Information 1 ea NOTE XX ; Start 06/10/18 at 13:30 Glucose (Glutose) 15 gm Q15M PRN PO DECREASED GLUCOSE; Start 06/10/18 at 13:30 Glucose (Glutose) 22.5 gm Q15M PRN PO DECREASED GLUCOSE; Start 06/10/18 at 13:30 Dextrose (D50w Syringe) 25 ml Q15M PRN IV DECREASED GLUCOSE; Start 06/10/18 at 13:30 Dextrose (D50w Syringe) 50 ml Q15M PRN IV DECREASED GLUCOSE; Start 06/10/18 at 13:30 Glucagon (Glucagen) 1 mg Q15M PRN IM DECREASED GLUCOSE; Start 06/10/18 at 13:30 Glucose (Glutose) 15 gm Q15M PRN BUCCAL DECREASED GLUCOSE; Start 06/10/18 at 13:30 Insulin Glargine (Lantus) 25 units DAILY@2000 SC Last administered on 06/10/18at 21:39; Admin Dose 25 UNITS; Start 06/10/18 at 20:00 Sodium Chloride 1,000 ml @ 50 mls/hr Q20H IV Last administered on 06/11/18at 14:36; Admin Dose 50 MLS/HR; Start 06/10/18 at 13:30 Acarbose (Precose) 50 mg WITH MEALS PO Last administered on 06/10/18at 18:03; Admin Dose 50 MG; Start 06/10/18 at 17:55 Aripiprazole (Abilify) 2 mg QHS PO ; Start 06/10/18 at 21:00 Atenolol (Tenormin) 25 mg DAILY PO ; Start 06/11/18 at 09:00 Atorvastatin Calcium (Lipitor) 20 mg QHS PO ; Start 06/10/18 at 21:00 Bisacodyl (Dulcolax) 10 mg DAILY PRN PO CONSTIPATION; Start 06/10/18 at 13:30 Calcium Carbonate (Oyster Shell Calcium) 1.25 gm DAILY PO ; Start 06/11/18 at 09:00 Clopidogrel Bisulfate (plaVIX) 75 mg DAILY PO ; Start 06/11/18 at 09:00 Cyanocobalamin (Vitamin B12) 200 mcg DAILY PO ; Start 06/11/18 at 09:00 Donepezil HCl (Aricept) 10 mg DAILY PO ; Start 06/11/18 at 09:00 Folic Acid (Folic Acid) 1 mg DAILY PO ; Start 06/11/18 at 09:00 Isosorbide Mononitrate (Ismo) 10 mg BID PO ; Start 06/10/18 at 21:00 Losartan Potassium (Cozaar) 12.5 mg DAILY PO ; Start 06/11/18 at 09:00 Magnesium Hydroxide (Milk Of Mag) 30 ml DAILY PRN PO CONSTIPATION; Start 06/10/18 at 13:30 Multivit/Ca Carb/ B Cmplx/FA/Prenat (Pili-Remberto) 1 tab DAILY PO ; Start 06/11/18 at 09:00 Pregabalin (Lyrica) 75 mg BID PO ; Start 06/10/18 at 21:00 Levothyroxine Sodium (Synthroid) 300 mcg BEFORE BREAKFAST PO ; Start 06/11/18 at 07:00 EVERTON FOSTER NP Jun 11, 2018 15:06
[2018-06-11] MEDS: CEFTRIAXONE 1 GM/50 ML (PMX) 50 ML IVPB SCH (17:05)
--- NOTE | 2018-06-11 18:00 | NUR ---
EOSS Pt stable not in any distress nor is complaining of any discomfort as of writing this note. POC reviewed and was carried out, hourly rounding done, needs anticipated, turned and repositioned q2h, room kept clean and clutter free.
--- NOTE | 2018-06-11 19:08 | PN ---
Date/Time of Note Date/Time of Note DATE: 06/11/18 TIME: 19:03 Assessment/Plan VTE Prophylaxis Risk score (from Nsg)>0 risk: 4 SCD applied (from Nsg): Yes Pharmacological prophylaxis: LMWH Lines/Catheters IV Catheter Type (from Nrsg): Peripheral IV Assessment/Plan Hospital Course 1. Acute metabolic/toxic encephalopathy on chronic dementia likely secondary to UTI and hypoglycemia Patient was hypoglycemic at the nursing facility but sugars have since stabilized Of note UA was normal but urine culture is growing gram-negative rods, patient also with leukocytosis today and low-grade fevers yesterday Continue Rocephin Follow-up on culture specifics ID consultation obtained Patient's mentation appears to be at baseline per family Patient's earlier hypothermia has resolved Have resumed Lantus but at decreased dose, NovoLog sliding scale 2. History of diabetes Resumed Lantus but at decreased dose secondary to hypoglycemia A1c at 7.4 3. Progressive dementia Patient resides in a longterm facility Continue home Aricept 4. Hypothyroidism Continue home Synthroid 5. Hypertension Continue home meds 6. History of coronary disease Resume home meds Prophylaxis: Lovenox DC planning: Continue antibiotics, follow-up on urine culture specifics, follow- up on ID recommendations Result Diagram: 06/11/18 0605 06/11/18 0552 Results 24hrs Laboratory Tests Test 06/10/18 21:22 06/11/18 01:55 06/11/18 05:41 06/11/18 05:52 Bedside Glucose 177 120 90 Sodium Level 138 Potassium Level 4.8 Chloride Level 105 Carbon Dioxide Level 23 Anion Gap 10 Blood Urea Nitrogen 21 H Creatinine 0.86 Est Glomerular Filtrat Rate mL/min Glucose Level 87 # Calcium Level 8.9 Phosphorus Level 3.1 Magnesium Level 1.9 Test 06/11/18 06:04 06/11/18 06:05 06/11/18 08:25 06/11/18 11:36 Hemoglobin A1c 7.4 H White Blood Count 12.2 #H Red Blood Count 4.19 L Hemoglobin 11.9 L Hematocrit 36.0 L Mean Corpuscular 85.9 Volume Mean Corpuscular 28.4 L Hemoglobin Mean Corpuscular 33.1 Hemoglobin Concent Red Cell 12.7 Distribution Width Platelet Count 95 #L Mean Platelet Volume 11.0 H Immature 0.400 Granulocytes % Neutrophils % 80.6 H Lymphocytes % 12.9 L Monocytes % 5.6 Eosinophils % 0.3 Basophils % 0.2 Nucleated Red Blood 0.0 Cells % Immature 0.050 H Granulocytes # Neutrophils # 9.8 H Lymphocytes # 1.6 Monocytes # 0.7 Eosinophils # 0.0 Basophils # 0.0 Nucleated Red Blood 0.0 Cells # Bedside Glucose 84 111 Test 06/11/18 17:05 Bedside Glucose 175 Subjective 24 Hr Interval Summary Constitutional: disoriented Exam/Review of Systems Vital Signs Vitals Vital Signs Date Temp Pulse Resp B/P (MAP) Pulse Ox O2 O2 Flow FiO2 Time Delivery Rate 06/11/18 98.0 62 16 104/52 98 Room Air 16:16 (69) Intake and Output 06/10/18 06/10/18 06/11/18 1515:00 23:00 07:00 IntakeIntake Total 2730 ml 50 ml BalanceBalance 2730 ml 50 ml Exam Constitutional: alert Psych: confusion Respiratory: clear to auscultation Cardiovascular: regular rate and rhythm Gastrointestinal: soft; No distended Musculoskeletal: nl extremities to inspection Medications Medications Current Medications IV Flush (NS 3 ml) 3 ml PER PROTOCOL IV ; Start 06/10/18 at 13:00 Ondansetron HCl (Zofran Inj) 4 mg Q6H PRN IV NAUSEA AND/OR VOMITING; Start 06/10/18 at 13:00 Morphine Sulfate (morphine) 2 mg Q4H PRN IV SEVERE PAIN LEVEL 7-10; Start 06/10/18 at 13:00 Ceftriaxone Sodium 50 ml @ 100 mls/hr Q24H IVPB Last administered on 06/11/18at 17:05; Admin Dose 100 MLS/HR; Start 06/10/18 at 18:00 Diagnostic Test (Pha) (Accu-Chek) 1 ea 02 XX Last administered on 06/11/18at 01:56; Admin Dose 1 EA; Start 06/11/18 at 02:00 Insulin Aspart (Novolog Insulin Pen) NOVOLOG *MILD* ALGORI... Q4 SC Last administered on 06/11/18at 17:26; Admin Dose 1 UNIT; Start 06/10/18 at 13:00 Miscellaneous Information 1 ea NOTE XX ; Start 06/10/18 at 13:30 Glucose (Glutose) 15 gm Q15M PRN PO DECREASED GLUCOSE; Start 06/10/18 at 13:30 Glucose (Glutose) 22.5 gm Q15M PRN PO DECREASED GLUCOSE; Start 06/10/18 at 13:30 Dextrose (D50w Syringe) 25 ml Q15M PRN IV DECREASED GLUCOSE; Start 06/10/18 at 13:30 Dextrose (D50w Syringe) 50 ml Q15M PRN IV DECREASED GLUCOSE; Start 06/10/18 at 13:30 Glucagon (Glucagen) 1 mg Q15M PRN IM DECREASED GLUCOSE; Start 06/10/18 at 13:30 Glucose (Glutose) 15 gm Q15M PRN BUCCAL DECREASED GLUCOSE; Start 06/10/18 at 13:30 Insulin Glargine (Lantus) 25 units DAILY@2000 SC Last administered on 06/10/18at 21:39; Admin Dose 25 UNITS; Start 06/10/18 at 20:00 Sodium Chloride 1,000 ml @ 50 mls/hr Q20H IV Last administered on 06/11/18at 14:36; Admin Dose 50 MLS/HR; Start 06/10/18 at 13:30 Acarbose (Precose) 50 mg WITH MEALS PO Last administered on 06/11/18at 17:05; Admin Dose 50 MG; Start 06/10/18 at 17:55 Aripiprazole (Abilify) 2 mg QHS PO ; Start 06/10/18 at 21:00 Atenolol (Tenormin) 25 mg DAILY PO ; Start 06/11/18 at 09:00 Atorvastatin Calcium (Lipitor) 20 mg QHS PO ; Start 06/10/18 at 21:00 Bisacodyl (Dulcolax) 10 mg DAILY PRN PO CONSTIPATION; Start 06/10/18 at 13:30 Calcium Carbonate (Oyster Shell Calcium) 1.25 gm DAILY PO ; Start 06/11/18 at 09:00 Clopidogrel Bisulfate (plaVIX) 75 mg DAILY PO ; Start 06/11/18 at 09:00 Cyanocobalamin (Vitamin B12) 200 mcg DAILY PO ; Start 06/11/18 at 09:00 Donepezil HCl (Aricept) 10 mg DAILY PO ; Start 06/11/18 at 09:00 Folic Acid (Folic Acid) 1 mg DAILY PO ; Start 06/11/18 at 09:00 Isosorbide Mononitrate (Ismo) 10 mg BID PO ; Start 06/10/18 at 21:00 Losartan Potassium (Cozaar) 12.5 mg DAILY PO ; Start 06/11/18 at 09:00 Magnesium Hydroxide (Milk Of Mag) 30 ml DAILY PRN PO CONSTIPATION; Start 06/10/18 at 13:30 Multivit/Ca Carb/ B Cmplx/FA/Prenat (Pili-Remberto) 1 tab DAILY PO ; Start 06/11/18 at 09:00 Pregabalin (Lyrica) 75 mg BID PO ; Start 06/10/18 at 21:00 Levothyroxine Sodium (Synthroid) 300 mcg BEFORE BREAKFAST PO ; Start 06/11/18 at 07:00 ROLDAN RUBIN Jun 11, 2018 19:08
[2018-06-11] MEDS: ARIPIPRAZOLE 2 MG TAB PO SCH (20:52)
[2018-06-11] MEDS: ATORVASTATIN 20 MG TAB PO SCH (20:53)
[2018-06-11] MEDS: INSULIN GLARGINE [LANTus] (100 UNITS/ML) SYG SC SCH (20:57)
--- NOTE | 2018-06-11 22:10 | CONS ---
DATE OF ADMISSION: 06/10/2018 DATE OF CONSULTATION: 06/11/2018 INFECTIOUS DISEASE CONSULTATION REASON FOR CONSULTATION: Antibiotic management. HISTORY OF PRESENT ILLNESS: Rachel Degroot is a 77-year-old female who was admitted with alte red levels of consciousness and is being seen for antibiotic management. PAST PROBLEMS INCLUDE: 1. Adult-onset diabetes mellitus. 2. Hypertension. 3. Coronary artery disease. 4. Status post coronary bypass graft. 5. Hypothyroidism. 6. Hyperlipidemia. 7. Alzheimer disease. 8. Schizophrenia. 9. Dementia. 10. Chronic renal disease. The patient presents to the emergency room from a detention facility with altered levels of co nsciousness. She is usually oriented x1 but today, she was found in bed and unresponsive. On admiss ion, her white count was 5,000; H and H of 12.1 and 37.7; and platelet count 119,000. BUN/creatinine 31/1.20 and glucose of 216. PAST SURGICAL HISTORY: Status post . PAST MEDICAL HISTORY: As outlined. The patient also has a history of depression as well as dementia . FAMILY HISTORY: Noncontributory. SOCIAL HISTORY: She does not smoke, drink, or abuse drugs. ALLERGIES: NONE TO PENICILLIN, SULFA, OR FOODS BUT SHE IS ALLERGIC TO PROPANOLOL. MEDICATIONS: Per chart. REVIEW OF SYSTEMS: As per HPI. PHYSICAL EXAMINATION: GENERAL: She is an elderly, ill-appearing female who is awake, responsive, and in no acute distress. VITAL SIGNS: Stable. She is afebrile. SKIN: Without generalized rash. HEENT: Within normal limits. NECK: Supple. Lymph nodes, none palpable. CHEST: Decreased breath sounds at the bases. HEART: Without murmur or gallop. ABDOMEN: Soft, nontender. Without organosplenomegaly or masses. EXTREMITIES: Without cyanosis, clubbing, or edema. RECTAL AND GENITAL: Deferred. NEUROLOGIC: No focal neurological abnormality. IMAGING STUDIES: Chest x-ray showed no infiltrates, consolidation, pulmonary edema, or pleural effus ion. No acute disease. CT scan of the brain showed atrophy and white matter disease. No intracrani al hemorrhage. IMPRESSION: The patient was placed on vancomycin and cefepime. On admission, a urinalysis was negat gisela but urine culture grew out greater than 10 to the 5th gram-negative rods. Presently, she is awak e, alert, and confused. Blood cultures are pending. We changed her antibiotics from ceftriaxone to meropenem while we await the culture reports. I will dictate my findings to the hospitalist. Dictated By: DIANA RAMIRES MD, JD/JOE Conf#: [id number] DID#: [id number] CC: MARZENA KAMARA MD; MARY GALLEGO; DIANA RAMIRES MD; ROLDAN RUBIN MD;*End*
[2018-06-12] VITALS (11 sets, daily range): BP systolic 118–159; BP diastolic 7–80; PULSE 48–91; RESP 17–27
[2018-06-12] MEDS: INSULIN ASPART [NOVOLOG] 3 ML PEN SC SCH ×2 (01:00→05:00)
[2018-06-12] MEDS: ACCU-CHEK XX SCH (02:00)
[2018-06-12] MEDS: SOD CHLORIDE 0.45% 1,000 ML IV SCH ×2 (05:30→13:12)
[2018-06-12] MEDS: Insulin NOVOLOG SS MILD Algorithm (SS with meals and bedtime) SC SCH ×4 (07:25→20:55)
[2018-06-12] MEDS ORDERED: INSULIN ASPART [NOVOLOG] 3 ML PEN SC SCH (07:25)
--- NOTE | 2018-06-12 07:37 | NUR ---
RN NOTES: PT SLEPT ON AND OFF. DEMENTIA, MORE CONFUSED TOWARD MORNING USUAL ACCORDING TO THE DAUGHTER, PT "WANDERING [id number] AM IN [facility]. ABLE TO TURN IN BED BUT VERY WEAK, NEEDS ASSISTANCE. ASSESSMENT DONE. CHANGES 3,4 TIMES FOR URINE INCONTINENT BY NETWORK DESIGNER. ENDORSED TO NEXT SHIFT PT IS HIGH RISK FOR FALLS.
[2018-06-12] MEDS: CALCIUM CARBONATE 1.25 GM TAB PO SCH (09:29)
[2018-06-12] MEDS: ACARBOSE 50 MG TAB PO SCH ×3 (09:30→17:34)
[2018-06-12] MEDS: ISOSORBIDE MONONITRATE 20 MG TAB PO SCH ×2 (09:31→20:55)
[2018-06-12] MEDS: DONEPEZIL 10 MG TAB PO SCH (09:31)
[2018-06-12] MEDS: FOLIC ACID 1 MG TAB PO SCH (09:31)
[2018-06-12] MEDS: CYANOCOBALAMIN 100 MCG TAB PO SCH (09:31)
[2018-06-12] MEDS: LOSARTAN 25 MG TAB PO SCH (09:31)
[2018-06-12] MEDS: MULTIVIT/CA CARB/B CMPLX/FA TAB PO SCH (09:31)
[2018-06-12] MEDS: ATENOLOL 25 MG TAB PO SCH (09:32)
[2018-06-12] MEDS: CLOPIDOGREL 75 MG TAB PO SCH (09:32)
[2018-06-12] MEDS: ENOXAPARIN 40 MG/0.4 ML SYG SC SCH (09:34)
[2018-06-12] MEDS: LEVOTHYROXINE 100 MCG TAB PO SCH (09:41)
[2018-06-12] MEDS: PREGABALIN 75 MG CAP PO SCH ×2 (09:41→20:54)
--- NOTE | 2018-06-12 11:25 | NUR ---
ST NOTE: pt is a 77 year old female admitted secondary to Acute metabolic/toxic encephalopathy on chronic dementia likely secondary to hypoglycemia and/or occult infection. PMH: diabetes, progressive dementia; hypothyroidism,HTN, Coronary Disease CT: Atrophy. White matter disease compatible with chronic small vessel ischemia. No intracranial hemorrhage, mass or evidence of acute transcortical infarct. CXR: clear premorbid diet; reg/thin current diet; reg/thin pt afebrile; pt on contact isolation; pt very confused; restless; diff. to follow for oral motor exam but pt with lingual weakness and some tremor noted; pt did not want take po; seen with liquids; no overt s/s of difficulty; pt only seen with puree and po meds; pt holding meds; eventually taking; no diff with puree; liquid wash given as some pills still in mouth; unable to test solids; will continue to assess; st to follow for diet tolerance may need downgrade but assess with reg/thin when pt willing to take; pt very confused stating she needs to go to work as she is late. discussed with gennaro Hubbard
--- NOTE | 2018-06-12 11:36 | CONS ---
Date/Time of Note Date/Time of Note DATE: 06/12/18 TIME: 11:30 Assessment/Plan Assessment/Plan Hospital Course ID INITIAL NOTE => Please refer to Dr. Jim full consult note dictation pending rn integrity from today. CURRENT ABX: DAY #3 Ceftriaxone 24H INTERVAL SUMMARY * Marked improvement with ABX for E.Coli UTI sensitive to Cephalosporins. * A/A/responsive -- pleasantly confused w/dementia, polite, calm, cooperative * No fevers -- s/p hypothermic now resolved, VSS, NAD MICRO * 06/10/18 (+)MRSA Nares * 06/10/18 BCx (-) * 06/10/18 URINE CX (+)GNR->URINE CULTURE Final Organism 1 ESCHERICHIA COLI COLONY COUNT >100,000 CFU/ml E COLI M.I.C. RX --------- --- AMPICILLIN <=2 S CEFAZOLIN <=4 S CEFOTAXIME S CIPROFLOXACIN >=4 R GENTAMICIN <=1 S LEVOFLOXACIN >=8 R NITROFURANTOIN 32 S TOBRAMYCIN <=1 S TRIMETHOPRIM/SULFAMETHOXAZOLE <=20 S PHYSICAL EXAMINATION: GENERAL: Afebrile, VSS, overweight F, pleasantly confused HEENT: AT, NC, anicteric, moist oral membranes NECK: Supple, increased neck circumference CHEST: Equal chest rise bilaterally, without dyspnea on observation HEART: Pulse RRR ABDOMEN: Soft EXTREMITIES: Warm, dry SKIN: No rash, no diaphoresis ID ASSESSMENT 77 yo F w/ senile dementia admit with: 1. SIRS vs early sepsis w/TMax 100.4-> Now hypothermic, HR 84, leukocytosis, v enous lactate 2.4, and acute AMS on admission due to #2 2. GNR complicated UTI -- currently has new FC placed in ED 3 Acute metabolic/toxic encephalopathy on chronic dementia likely secondary to occult infection + hypoglycemic episode @ SNF 4. Diabetes w/A1c 7.4 5. Acute renal insufficiency w/S.Creatinine @ 2.4 on admission -- down to 0.86 today w/fluids + ABX 6. HTN 7. Hypothyroidism 8. History of coronary disease/ prior remote CABG ( +)MRSA Nares ->Bactroban added today ABX ALLERGIES: None to ABX INVASIVES: PIV, FC CURRENT ABX: DAY #3 Ceftriaxone ID RECOMMENDATIONS/PLAN: 1. Anticipate 5 -7 days Ceftriaxone for complicated UTI 2. Added Bactroban to bilateral nares + Doxycycline 100mg PO Q12H x 5 days for MRSA decolonization attempt. 3. DC PLANNING: OK to DC back to SNF on ABX PO Keflex, Doxy, Bactroban when cleared by primary . . Result Diagram: 06/12/18 0506/12/18 05 Results 24hrs Laboratory Tests Test 06/11/18 11:36 06/11/18 17:05 06/11/18 20:29 06/12/18 01:28 Bedside Glucose 111 175 176 173 Test 06/12/18 05:26 06/12/18 07:58 White Blood Count 7.5 # Red Blood Count 3.98 L Hemoglobin 11.3 L Hematocrit 33.9 L Mean Corpuscular 85.2 Volume Mean Corpuscular 28.4 L Hemoglobin Mean Corpuscular 33.3 Hemoglobin Concent Red Cell 12.7 Distribution Width Platelet Count 109 L Mean Platelet Volume 10.1 Immature 0.400 Granulocytes % Neutrophils % 73.6 Lymphocytes % 17.0 Monocytes % 8.0 Eosinophils % 0.7 Basophils % 0.3 Nucleated Red Blood 0.0 Cells % Immature 0.030 Granulocytes # Neutrophils # 5.5 Lymphocytes # 1.3 Monocytes # 0.6 Eosinophils # 0.1 Basophils # 0.0 Nucleated Red Blood 0.0 Cells # Sodium Level 140 Potassium Level 4.1 Chloride Level 107 Carbon Dioxide Level 28 Anion Gap 5 Blood Urea Nitrogen 21 H Creatinine 0.99 Est Glomerular Filtrat Rate mL/min Glucose Level 122 Calcium Level 9.2 Bedside Glucose 111 Consultation Date/Type/Reason Admit Date/Time Jun 10, 2018 at 14:22 Initial Consult Date Exam/Review of Systems Vital Signs Vitals Vital Signs Date Temp Pulse Resp B/P (MAP) Pulse Ox O2 O2 Flow FiO2 Time Delivery Rate 06/12/18 71 08:06 06/12/18 98.3 131/75 99 07:19 (93) 06/12/18 19 00:00 06/11/18 Room Air 20:00 Intake and Output 06/11/18 06/11/18 06/12/18 1515:00 23:00 07:00 IntakeIntake Total 1000 ml 650 ml 850 ml BalanceBalance 1000 ml 650 ml 850 ml Medications Medications Current Medications IV Flush (NS 3 ml) 3 ml PER PROTOCOL IV ; Start 06/10/18 at 13:00 Ondansetron HCl (Zofran Inj) 4 mg Q6H PRN IV NAUSEA AND/OR VOMITING; Start 06/10/18 at 13:00 Morphine Sulfate (morphine) 2 mg Q4H PRN IV SEVERE PAIN LEVEL 7-10; Start 06/10/18 at 13:00 Ceftriaxone Sodium 50 ml @ 100 mls/hr Q24H IVPB Last administered on 06/11/18at 17:05; Admin Dose 100 MLS/HR; Start 06/10/18 at 18:00 Diagnostic Test (Pha) (Accu-Chek) 1 ea 02 XX Last administered on 06/11/18at 01:56; Admin Dose 1 EA; Start 06/11/18 at 02:00 Miscellaneous Information 1 ea NOTE XX ; Start 06/10/18 at 13:30 Glucose (Glutose) 15 gm Q15M PRN PO DECREASED GLUCOSE; Start 06/10/18 at 13:30 Glucose (Glutose) 22.5 gm Q15M PRN PO DECREASED GLUCOSE; Start 06/10/18 at 13:30 Dextrose (D50w Syringe) 25 ml Q15M PRN IV DECREASED GLUCOSE; Start 06/10/18 at 13:30 Dextrose (D50w Syringe) 50 ml Q15M PRN IV DECREASED GLUCOSE; Start 06/10/18 at 13:30 Glucagon (Glucagen) 1 mg Q15M PRN IM DECREASED GLUCOSE; Start 06/10/18 at 13:30 Glucose (Glutose) 15 gm Q15M PRN BUCCAL DECREASED GLUCOSE; Start 06/10/18 at 13:30 Insulin Glargine (Lantus) 25 units DAILY@2000 SC Last administered on 06/11/18at 20:57; Admin Dose 25 UNITS; Start 06/10/18 at 20:00 Sodium Chloride 1,000 ml @ 50 mls/hr Q20H IV Last administered on 06/11/18at 14:36; Admin Dose 50 MLS/HR; Start 06/10/18 at 13:30 Acarbose (Precose) 50 mg WITH MEALS PO Last administered on 06/12/18at 09:30; Admin Dose 50 MG; Start 06/10/18 at 17:55 Aripiprazole (Abilify) 2 mg QHS PO Last administered on 06/11/18 20:52; Admin Dose 2 MG; Start 06/10/18 at 21:00 Atenolol (Tenormin) 25 mg DAILY PO Last administered on 06/12/18 09:32; Admin Dose 25 MG; Start 06/11/18 at 09:00 Atorvastatin Calcium (Lipitor) 20 mg QHS PO Last administered on 06/11/18 20:53; Admin Dose 20 MG; Start 06/10/18 at 21:00 Bisacodyl (Dulcolax) 10 mg DAILY PRN PO CONSTIPATION; Start 06/10/18 at 13:30 Calcium Carbonate (Oyster Shell Calcium) 1.25 gm DAILY PO Last administered on 06/12/18 09:29; Admin Dose 1.25 GM; Start 06/11/18 at 09:00 Clopidogrel Bisulfate (plaVIX) 75 mg DAILY PO Last administered on 06/12/18 09:32; Admin Dose 75 MG; Start 06/11/18 at 09:00 Cyanocobalamin (Vitamin B12) 200 mcg DAILY PO Last administered on 06/12/18 09:31; Admin Dose 200 MCG; Start 06/11/18 at 09:00 Donepezil HCl (Aricept) 10 mg DAILY PO Last administered on 06/12/18 09:31; Admin Dose 10 MG; Start 06/11/18 at 09:00 Folic Acid (Folic Acid) 1 mg DAILY PO Last administered on 06/12/18 09:31; Admin Dose 1 MG; Start 06/11/18 at 09:00 Isosorbide Mononitrate (Ismo) 10 mg BID PO Last administered on 06/12/18 09:31; Admin Dose 10 MG; Start 06/10/18 at 21:00 Losartan Potassium (Cozaar) 12.5 mg DAILY PO Last administered on 06/12/18 09:31; Admin Dose 12.5 MG; Start 06/11/18 at 09:00 Magnesium Hydroxide (Milk Of Mag) 30 ml DAILY PRN PO CONSTIPATION; Start 06/10/18 at 13:30 Multivit/Ca Carb/ B Cmplx/FA/Prenat (Pili-Remberto) 1 tab DAILY PO Last administered on 06/12/18 09:31; Admin Dose 1 TAB; Start 06/11/18 at 09:00 Pregabalin (Lyrica) 75 mg BID PO Last administered on 06/12/18at 09:41; Admin Dose 75 MG; Start 06/10/18 at 21:00 Levothyroxine Sodium (Synthroid) 300 mcg BEFORE BREAKFAST PO Last administered on 06/12/18at 09:41; Admin Dose 300 MCG; Start 06/11/18 at 07:00 Enoxaparin Sodium (Lovenox) 40 mg DAILY SC Last administered on 06/12/18at 09:34; Admin Dose 40 MG; Start 06/12/18 at 09:00 Insulin Aspart (Novolog Insulin Pen) (Adult SC Insulin - Mild Algorithm)... AC MEALS AND BEDTIME SC ; Start 06/12/18 at 07:25 EVERTON FOSTER NP Jun 12, 2018 11:36
[2018-06-12] MEDS: DOXYCYCLINE 100 MG TAB PO SCH ×2 (13:01→20:54)
[2018-06-12] MEDS: MUPIROCIN 2% 22 GM OINT TOP SCH ×2 (13:01→20:55)
--- NOTE | 2018-06-12 13:21 | PN ---
Date/Time of Note Date/Time of Note DATE: 06/12/18 TIME: 13:16 Assessment/Plan VTE Prophylaxis Risk score (from Ns)>0 risk: 5 SCD applied (from Nsg): Yes Pharmacological prophylaxis: LMWH Lines/Catheters IV Catheter Type (from Nrsg): Peripheral IV Assessment/Plan Assessment/Plan 1. Acute metabolic/toxic encephalopathy on chronic dementia likely secondary to UTI and hypoglycemia - Patient still pleasantly confused but appears to have improved - Patient encouraged to eat due to hypoglycemia - Urine cultures noted - ID consultation appreciated and recommending Ceftriaxone, doxy, and bactroban 2. h/o DM - A1c 7.4 - Lantus dose decreased given hypoglycemia and poor PO intake 3. Progressive dementia - Patient resides in a residential facility - Continue home Aricept 4. Hypothyroidism - Continue home Synthroid 5. Hypertension - Continue home meds 6. History of coronary disease - Resume home meds 7. Disposition - If remains stable, will d/c back to SNF in next 24-48 hours Result Diagram: 06/12/1852506/12/18 0526 Results 24hrs Laboratory Tests Test 06/11/18 17:05 06/11/18 20:29 06/12/18 01:28 06/12/18 05:26 Bedside Glucose 175 176 173 White Blood Count 7.5 # Red Blood Count 3.98 L Hemoglobin 11.3 L Hematocrit 33.9 L Mean Corpuscular 85.2 Volume Mean Corpuscular 28.4 L Hemoglobin Mean Corpuscular 33.3 Hemoglobin Concent Red Cell 12.7 Distribution Width Platelet Count 109 L Mean Platelet Volume 10.1 Immature 0.400 Granulocytes % Neutrophils % 73.6 Lymphocytes % 17.0 Monocytes % 8.0 Eosinophils % 0.7 Basophils % 0.3 Nucleated Red Blood 0.0 Cells % Immature 0.030 Granulocytes # Neutrophils # 5.5 Lymphocytes # 1.3 Monocytes # 0.6 Eosinophils # 0.1 Basophils # 0.0 Nucleated Red Blood 0.0 Cells # Sodium Level 140 Potassium Level 4.1 Chloride Level 107 Carbon Dioxide Level 28 Anion Gap 5 Blood Urea Nitrogen 21 H Creatinine 0.99 Est Glomerular Filtrat Rate mL/min Glucose Level 122 Calcium Level 9.2 Test 06/12/18 07:58 06/12/18 12:06 Bedside Glucose 111 120 Subjective 24 Hr Interval Summary Free Text/Dictation Patient still pleasantly confused with poor PO intake. Denies any acute issues. Does admit to burning with urination. Exam/Review of Systems Vital Signs Vitals Vital Signs Date Temp Pulse Resp B/P (MAP) Pulse Ox O2 O2 Flow FiO2 Time Delivery Rate 06/12/18 67 12:23 06/12/18 98.5 17 118/61 100 11:41 (80) 06/11/18 Room Air 20:00 Intake and Output 06/11/18 06/11/18 06/12/18 1414:59 22:59 06:59 IntakeIntake Total 1000 ml 650 ml BalanceBalance 1000 ml 650 ml Exam General: Patient is laying in bed, pleasantly confused Head: Normocephalic atraumatic Eyes: EOMI, pupils reactive to light Neck: Supple, nontender, midline Respiratory: Clear to auscultation bilaterally. no wheezing or rhonchi Cardiovascular: regular rate and rhythm, systolic murmurs Gastrointestinal: soft, non-tender to palpation, nondistended, bowel sounds heard. Neurological: Moves all extremities spontaneously Skin: No new skin lesions Medications Medications Current Medications IV Flush (NS 3 ml) 3 ml PER PROTOCOL IV ; Start 06/10/18 at 13:00 Ondansetron HCl (Zofran Inj) 4 mg Q6H PRN IV NAUSEA AND/OR VOMITING; Start 06/10/18 at 13:00 Morphine Sulfate (morphine) 2 mg Q4H PRN IV SEVERE PAIN LEVEL 7-10; Start 06/10/18 at 13:00 Ceftriaxone Sodium 50 ml @ 100 mls/hr Q24H IVPB Last administered on 06/11/18at 17:05; Admin Dose 100 MLS/HR; Start 06/10/18 at 18:00 Diagnostic Test (Pha) (Accu-Chek) 1 ea 02 XX Last administered on 06/11/18at 01:56; Admin Dose 1 EA; Start 06/11/18 at 02:00 Miscellaneous Information 1 ea NOTE XX ; Start 06/10/18 at 13:30 Glucose (Glutose) 15 gm Q15M PRN PO DECREASED GLUCOSE; Start 06/10/18 at 13:30 Glucose (Glutose) 22.5 gm Q15M PRN PO DECREASED GLUCOSE; Start 06/10/18 at 13:30 Dextrose (D50w Syringe) 25 ml Q15M PRN IV DECREASED GLUCOSE; Start 06/10/18 at 13:30 Dextrose (D50w Syringe) 50 ml Q15M PRN IV DECREASED GLUCOSE; Start 06/10/18 at 13:30 Glucagon (Glucagen) 1 mg Q15M PRN IM DECREASED GLUCOSE; Start 06/10/18 at 13:30 Glucose (Glutose) 15 gm Q15M PRN BUCCAL DECREASED GLUCOSE; Start 06/10/18 at 13:30 Insulin Glargine (Lantus) 25 units DAILY@2000 SC Last administered on 06/11/18at 20:57; Admin Dose 25 UNITS; Start 06/10/18 at 20:00 Sodium Chloride 1,000 ml @ 50 mls/hr Q20H IV Last administered on 06/12/18at 13:12; Admin Dose 50 MLS/HR; Start 06/10/18 at 13:30 Acarbose (Precose) 50 mg WITH MEALS PO Last administered on 06/12/18at 13:01; Admin Dose 50 MG; Start 06/10/18 at 17:55 Aripiprazole (Abilify) 2 mg QHS PO Last administered on 06/11/18 20:52; Admin Dose 2 MG; Start 06/10/18 at 21:00 Atenolol (Tenormin) 25 mg DAILY PO Last administered on 06/12/18 09:32; Admin Dose 25 MG; Start 06/11/18 at 09:00 Atorvastatin Calcium (Lipitor) 20 mg QHS PO Last administered on 06/11/18at 20:53; Admin Dose 20 MG; Start 06/10/18 at 21:00 Bisacodyl (Dulcolax) 10 mg DAILY PRN PO CONSTIPATION; Start 06/10/18 at 13:30 Calcium Carbonate (Oyster Shell Calcium) 1.25 gm DAILY PO Last administered on 06/12/18 09:29; Admin Dose 1.25 GM; Start 06/11/18 at 09:00 Clopidogrel Bisulfate (plaVIX) 75 mg DAILY PO Last administered on 06/12/18at 09:32; Admin Dose 75 MG; Start 06/11/18 at 09:00 Cyanocobalamin (Vitamin B12) 200 mcg DAILY PO Last administered on 06/12/18 09:31; Admin Dose 200 MCG; Start 06/11/18 at 09:00 Donepezil HCl (Aricept) 10 mg DAILY PO Last administered on 06/12/18 09:31; Admin Dose 10 MG; Start 06/11/18 at 09:00 Folic Acid (Folic Acid) 1 mg DAILY PO Last administered on 06/12/18 09:31; Admin Dose 1 MG; Start 06/11/18 at 09:00 Isosorbide Mononitrate (Ismo) 10 mg BID PO Last administered on 06/12/18 09:31; Admin Dose 10 MG; Start 06/10/18 at 21:00 Losartan Potassium (Cozaar) 12.5 mg DAILY PO Last administered on 06/12/18 09:31; Admin Dose 12.5 MG; Start 06/11/18 at 09:00 Magnesium Hydroxide (Milk Of Mag) 30 ml DAILY PRN PO CONSTIPATION; Start 06/10/18 at 13:30 Multivit/Ca Carb/ B Cmplx/FA/Prenat (Pili-Remberto) 1 tab DAILY PO Last administered on 06/12/18 09:31; Admin Dose 1 TAB; Start 06/11/18 at 09:00 Pregabalin (Lyrica) 75 mg BID PO Last administered on 06/12/18 09:41; Admin Dose 75 MG; Start 06/10/18 at 21:00 Levothyroxine Sodium (Synthroid) 300 mcg BEFORE BREAKFAST PO Last administered on 06/12/18 09:41; Admin Dose 300 MCG; Start 06/11/18 at 07:00 Enoxaparin Sodium (Lovenox) 40 mg DAILY SC Last administered on 06/12/18 09:34; Admin Dose 40 MG; Start 06/12/18 at 09:00 Insulin Aspart (Novolog Insulin Pen) (Adult SC Insulin - Mild Algorithm)... AC MEALS AND BEDTIME SC ; Start 06/12/18 at 07:25 Mupirocin (Bactroban) 1 applic BID TOP Last administered on 06/12/18 13:01; Admin Dose 1 APPLIC; Start 06/12/18 at 12:30; Stop 06/16/18 at 21:01 Doxycycline Hyclate (Vibramycin) 100 mg BID PO Last administered on 06/12/18 13:01; Admin Dose 100 MG; Start 06/12/18 at 12:30; Stop 06/16/18 at 21:01 DEMETRIO HART MD Jun 12, 2018 13:21
--- NOTE | 2018-06-12 14:50 | NUR ---
PT Evaluation note: S: HPI 77-year-old female history of diabetes, hypertension, coronary artery disease status post CABG, hypothyroidism, hyperlipidemia, Alzheimer's disease, schizophrenia, dementia and chronic kidney disease presents to the ED via rescue ambulance from [facility] nursing home facility for evaluation of altered mental status. Apparently patient is usually alert, oriented x1 and able to ambulate with some assistance but today was found in bed not responsive. No documented prodrome. No vomiting or diarrhea. No fevers. Limited history is and obtained entirely from transferring paramedics and review of prior medical records as patient is unable to provide any history due to her cognitive impairment. O: MD order received for PT consult. Pt confused but follows command with cues, agreeable to get up with PT, cleared by RN in charge Vy Hubbard to proceed. PREC: HIGH fall risk, hx of dementia, contact isolation for MRSA nares. PLOF: Patient assisted with ADL and ambulation using FWW, tolerated about 30 feet at slow paced per daughter Ernestina. Pt lives in memory care facility CLOF: Patient need max assist with bed mobility, max x 2 with sit <--> stand and able to make small side steps with increased verbal and tactile cues, PT has to move pt's leg to initiate. marked retro lean on standing making her feet to slide forward needing PT to block both feet. A: Patient can benefit from F/U PT and back to previous facility for continue care. P: Cont PT and progress as able. 2p assist to progress activities.
--- NOTE | 2018-06-12 16:48 | NUR ---
Nutrition consult: Pt admitted for ALOC, hypothermia. Pt pleasantly confused, a lot of family members in the room. PMH DM, progressive dementia, HTN, hypothyroid, coronary disease. Poor PO intake 25-100%, refusing meals. Per pt's daughter, pt doesn't like the food. She reports that there is no taste/seasoning. Per pt, since staying in a nursing facility she has lost 28 lbs in 4 months and has fallen multiple times. Pt has full dentures on top and partial teeth on bottom (lost partial bottom dentures) but has no difficulty chewing or swallowing. Pt was assessed for ST at facility because she wasn't eating but it was r/t dementia. She was eating well when she was fed by daughter. Pt likes the boost so added oral supplement boost glu BID. Pt would benefit from having a feeder. Pt has good appetite but she may forget to eat. She has lost 28 lbs in 4 months because there is no one to feed her so that increases her risk of falls, wt loss, and malnutrition.
[2018-06-12] MEDS: CEFTRIAXONE 1 GM/50 ML (PMX) 50 ML IVPB SCH (17:34)
--- NOTE | 2018-06-12 18:28 | NUR ---
EOSS: NO SIGNIFICANT CHANGE OF CONDITION, CONTINUE WITH CURRENT PLAN OF CARE
[2018-06-12] MEDS: ARIPIPRAZOLE 2 MG TAB PO SCH (20:54)
[2018-06-12] MEDS: ATORVASTATIN 20 MG TAB PO SCH (20:54)
[2018-06-12] MEDS: INSULIN GLARGINE [LANTus] (100 UNITS/ML) SYG SC SCH (21:08)
[2018-06-13] VITALS (10 sets, daily range): BP systolic 95–134; BP diastolic 54–62; PULSE 49–73; RESP 18–20
[2018-06-13] MEDS: ACCU-CHEK XX SCH (02:00)
[2018-06-13] MEDS: LEVOTHYROXINE 100 MCG TAB PO SCH (06:54)
[2018-06-13] MEDS: Insulin NOVOLOG SS MILD Algorithm (SS with meals and bedtime) SC SCH ×2 (07:25→11:52)
[2018-06-13] MEDS: FOLIC ACID 1 MG TAB PO SCH (08:47)
[2018-06-13] MEDS: CLOPIDOGREL 75 MG TAB PO SCH (08:47)
[2018-06-13] MEDS: ATENOLOL 25 MG TAB PO SCH (08:47)
[2018-06-13] MEDS: DONEPEZIL 10 MG TAB PO SCH (08:47)
[2018-06-13] MEDS: DOXYCYCLINE 100 MG TAB PO SCH (08:47)
[2018-06-13] MEDS: MULTIVIT/CA CARB/B CMPLX/FA TAB PO SCH (08:47)
[2018-06-13] MEDS: CALCIUM CARBONATE 1.25 GM TAB PO SCH (08:48)
[2018-06-13] MEDS: ACARBOSE 50 MG TAB PO SCH ×2 (08:48→12:01)
[2018-06-13] MEDS: CYANOCOBALAMIN 100 MCG TAB PO SCH (08:48)
[2018-06-13] MEDS: LOSARTAN 25 MG TAB PO SCH (08:49)
[2018-06-13] MEDS: ISOSORBIDE MONONITRATE 20 MG TAB PO SCH (08:49)
[2018-06-13] MEDS: MUPIROCIN 2% 22 GM OINT TOP SCH (08:50)
[2018-06-13] MEDS: ENOXAPARIN 40 MG/0.4 ML SYG SC SCH (08:57)
[2018-06-13] MEDS: PREGABALIN 75 MG CAP PO SCH (09:08)
--- NOTE | 2018-06-13 09:42 | PN ---
Date/Time of Note Date/Time of Note DATE: 06/13/18 TIME: 09:42 Assessment/Plan VTE Prophylaxis Risk score (from Nsg)>0 risk: 7 SCD applied (from Nsg): Yes Pharmacological prophylaxis: heparin Lines/Catheters IV Catheter Type (from Nrsg): Peripheral IV Assessment/Plan Assessment/Plan 1. Acute metabolic/toxic encephalopathy on chronic dementia likely secondary to UTI and hypoglycemia- improving - Patient still with slight confusion but most likely secondary to dementia - Urine cultures noted - ID consultation appreciated and recommending Ceftriaxone, doxy, and bactroban 2. h/o DM - A1c 7.4 - Lantus dose decreased given hypoglycemia episode at admission 3. Progressive dementia - Patient resides in a snf facility - Continue home Aricept 4. Hypothyroidism - Continue home Synthroid 5. Hypertension - Continue home meds 6. History of coronary disease - Resume home meds 7. Disposition - stable for discharge back to [facility] Result Diagram: 06/12/18 0526 06/12/18 0526 Results 24hrs Laboratory Tests Test 06/12/18 12:06 06/12/18 17:06 06/12/18 20:50 06/13/18 07:45 Bedside Glucose 120 139 135 92 Subjective 24 Hr Interval Summary Free Text/Dictation Patient doing well and remains pleasantly confused. No acute overnight events. No new complaints. Exam/Review of Systems Vital Signs Vitals Vital Signs Date Temp Pulse Resp B/P (MAP) Pulse Ox O2 O2 Flow FiO2 Time Delivery Rate 06/13/18 67 08:51 06/13/18 98.2 18 122/59 98 07:29 (80) 06/11/18 Room Air 20:00 Intake and Output 06/12/18 06/12/18 06/13/18 1515:00 23:00 07:00 IntakeIntake Total 1050 ml 300 ml BalanceBalance 1050 ml 300 ml Exam General: Patient is laying in bed, pleasantly confused Respiratory: Clear to auscultation bilaterally. no wheezing or rhonchi Cardiovascular: regular rate and rhythm, systolic murmurs Gastrointestinal: soft, non-tender to palpation, nondistended, bowel sounds heard. Neurological: Moves all extremities spontaneously Skin: No new skin lesions Medications Medications Current Medications IV Flush (NS 3 ml) 3 ml PER PROTOCOL IV ; Start 06/10/18 at 13:00 Ondansetron HCl (Zofran Inj) 4 mg Q6H PRN IV NAUSEA AND/OR VOMITING; Start 06/10/18 at 13:00 Morphine Sulfate (morphine) 2 mg Q4H PRN IV SEVERE PAIN LEVEL 7-10; Start 06/10/18 at 13:00 Ceftriaxone Sodium 50 ml @ 100 mls/hr Q24H IVPB Last administered on 06/12/18at 17:34; Admin Dose 100 MLS/HR; Start 06/10/18 at 18:00 Diagnostic Test (Pha) (Accu-Chek) 1 ea 02 XX Last administered on 06/11/18at 01:56; Admin Dose 1 EA; Start 06/11/18 at 02:00 Miscellaneous Information 1 ea NOTE XX ; Start 06/10/18 at 13:30 Glucose (Glutose) 15 gm Q15M PRN PO DECREASED GLUCOSE; Start 06/10/18 at 13:30 Glucose (Glutose) 22.5 gm Q15M PRN PO DECREASED GLUCOSE; Start 06/10/18 at 13:30 Dextrose (D50w Syringe) 25 ml Q15M PRN IV DECREASED GLUCOSE; Start 06/10/18 at 13:30 Dextrose (D50w Syringe) 50 ml Q15M PRN IV DECREASED GLUCOSE; Start 06/10/18 at 13:30 Glucagon (Glucagen) 1 mg Q15M PRN IM DECREASED GLUCOSE; Start 06/10/18 at 13:30 Glucose (Glutose) 15 gm Q15M PRN BUCCAL DECREASED GLUCOSE; Start 06/10/18 at 13:30 Insulin Glargine (Lantus) 25 units DAILY@2000 SC Last administered on 06/12/18at 21:08; Admin Dose 25 UNITS; Start 06/10/18 at 20:00 Sodium Chloride 1,000 ml @ 50 mls/hr Q20H IV Last administered on 06/12/18at 13:12; Admin Dose 50 MLS/HR; Start 06/10/18 at 13:30 Acarbose (Precose) 50 mg WITH MEALS PO Last administered on 06/13/18at 08:48; Admin Dose 50 MG; Start 06/10/18 at 17:55 Aripiprazole (Abilify) 2 mg QHS PO Last administered on 06/12/18at 20:54; Admin Dose 2 MG; Start 06/10/18 at 21:00 Atenolol (Tenormin) 25 mg DAILY PO Last administered on 06/13/18 08:47; Admin Dose 25 MG; Start 06/11/18 at 09:00 Atorvastatin Calcium (Lipitor) 20 mg QHS PO Last administered on 06/12/18 20:54; Admin Dose 20 MG; Start 06/10/18 at 21:00 Bisacodyl (Dulcolax) 10 mg DAILY PRN PO CONSTIPATION; Start 06/10/18 at 13:30 Calcium Carbonate (Oyster Shell Calcium) 1.25 gm DAILY PO Last administered on 06/13/18 08:48; Admin Dose 1.25 GM; Start 06/11/18 at 09:00 Clopidogrel Bisulfate (plaVIX) 75 mg DAILY PO Last administered on 06/13/18 08:47; Admin Dose 75 MG; Start 06/11/18 at 09:00 Cyanocobalamin (Vitamin B12) 200 mcg DAILY PO Last administered on 06/13/18 08:48; Admin Dose 200 MCG; Start 06/11/18 at 09:00 Donepezil HCl (Aricept) 10 mg DAILY PO Last administered on 06/13/18 08:47; Admin Dose 10 MG; Start 06/11/18 at 09:00 Folic Acid (Folic Acid) 1 mg DAILY PO Last administered on 06/13/18 08:47; Admin Dose 1 MG; Start 06/11/18 at 09:00 Isosorbide Mononitrate (Ismo) 10 mg BID PO Last administered on 06/13/18 08:49; Admin Dose 10 MG; Start 06/10/18 at 21:00 Losartan Potassium (Cozaar) 12.5 mg DAILY PO Last administered on 06/13/18 08:49; Admin Dose 12.5 MG; Start 06/11/18 at 09:00 Magnesium Hydroxide (Milk Of Mag) 30 ml DAILY PRN PO CONSTIPATION; Start 06/10/18 at 13:30 Multivit/Ca Carb/ B Cmplx/FA/Prenat (Pili-Remberto) 1 tab DAILY PO Last administered on 06/13/18 08:47; Admin Dose 1 TAB; Start 06/11/18 at 09:00 Pregabalin (Lyrica) 75 mg BID PO Last administered on 1/22/19at 09:08; Admin Dose 75 MG; Start 06/10/18 at 21:00 Levothyroxine Sodium (Synthroid) 300 mcg BEFORE BREAKFAST PO Last administered on 06/13/18at 06:54; Admin Dose 300 MCG; Start 06/11/18 at 07:00 Enoxaparin Sodium (Lovenox) 40 mg DAILY SC Last administered on 06/13/18at 08:57; Admin Dose 40 MG; Start 06/12/18 at 09:00 Insulin Aspart (Novolog Insulin Pen) (Adult SC Insulin - Mild Algorithm)... AC MEALS AND BEDTIME SC ; Start 06/12/18 at 07:25 Mupirocin (Bactroban) 1 applic BID TOP Last administered on 06/13/18at 08:50; Admin Dose 1 APPLIC; Start 06/12/18 at 12:30; Stop 06/16/18 at 21:01 Doxycycline Hyclate (Vibramycin) 100 mg BID PO Last administered on 06/13/18at 08:47; Admin Dose 100 MG; Start 06/12/18 at 12:30; Stop 06/16/18 at 21:01 DEMETRIO HART MD Jun 13, 2018 09:42
--- NOTE | 2018-06-13 10:10 | NUR ---
OT EVAL: HPI 77-year-old female history of diabetes, hypertension, coronary artery disease status post CABG, hypothyroidism, hyperlipidemia, Alzheimer's disease, schizophrenia, dementia and chronic kidney disease presents to the ED via rescue ambulance [facility] [place] [facility] for evaluation of altered mental status. PREC: HIGH fall risk, hx of dementia, contact isolation for MRSA nares. PLOF: Patient assisted with ADL and ambulation using FWW, tolerated about 30 feet at slow paced per daughter Ernestina. Pt lives in memory care facility. CLOF: RN cleared pt for skilled OT tx. Pt received supine in bed stating 0/10 pain and stable vitals. Pt AOx 2( person, place) and follows simple commands. Pt required Min A to perform supine->sit sit at EOB. Once seated at EOB pt demonstrated Fair sitting balance and required total A to guillermo socks. Pt performed STS and toilet transfer with Min A using FWW. Pt required verbal cueing for proper positioning and safety. Pt stood at bathroom sink while completing h/g tasks with CGA and minimal cueing for sequencing. Pt returned to bed with Min A. RN notified. Recommend OT tx 1x daily for 3-5x week to increase safety awareness, balance, endurance and independence with self care. DC pt back to previous facility for continue care once medically cleared by .
--- NOTE | 2018-06-13 10:40 | NUR ---
PT NOTE [facility] Patient: Rachel Degroot : 1940 Age/Sex: 77/F Unit#: [id number] Room/Bed: 504/A User: Nanci Valladares PTA Date: 06/13/18 10:40 Type: PT Technical Record Therapy day number 2 Subjective Denies pain Pain Scale FACES Pain Intensity 0 (0-10) Patient Stated Goal for Pain Relief 0 (0-10) Pain Level Comment no c/o pain Transfer Training Start Time 09:52 Supine to Sit Moderate Assist Transfer Sit to Stand Ability Minimum Assist Bed Mobility Sit to Supine Moderate Assist Bed Transfer Ability Contact Guard Assist Chair Transfer Ability Contact Guard Assist Toileting Ability Contact Guard Assist Transfer Training End Time 10:20 Total Transfer Training Time 28 min (8-127) Gait Training Start Time 10:20 Gait Assist Levels Contact Guard Assist Assistive Devices Front Wheel Walker Ambulation Distance 10 feet Additional Gait Comments decreased step length/stride Gait Training End Time 10:40 Total Gait Training Treatment Time 20 min (8-127) Static Sitting Balance Fair plus Dynamic Sitting Balance Fair Standing Static Balance Fair Dynamic Standing Balance Fair minus Additional Balance Assessments Comments FWW Safety Judgement Fair Activity Tolerance Fair Equipment Present IV pump Post Treatment Pain Intensity 0 0-10 Total Treament Time 48 min (8-127) Total Minutes 48 Total Units 3 PT Technical Record Comment S: MIRA Scott cleared pt for PT. Pt had no c/o pain and agreeable to tx O: Received pt in bed w/ HOB elevated. RN and BUMBOATER arrived to assist w/ pt hygiene. See above for assist levels. Gait training x 10' and presented with slow theresa and decreased step length/stride. Required assistance w/ walker management. VC/TC for hand placement and sequencing. Assisted to toilet and w/ pt hygiene. Returned pt back to bed. Positioned pt to comfort in bed w/ HOB elevated. Call light/phone within reach. Bed alarm on. Needs met. Informed RN of pt status and PT activities A: Fair tolerance to tx.. Significantly improved assistance throughout. Required 1PA instead of 2PA. Pt able follow one step commands in Wol[place] P: Continue w/ POC and progress as tolerated.
[2018-06-13] MEDS ORDERED: MUPI22OI2 TOP (12:13)
[2018-06-13] MEDS ORDERED: LEVEM SUBCUTANE (12:13)
[2018-06-13] MEDS ORDERED: DOXY100T2 PO (12:13)
[2018-06-13] MEDS ORDERED: CEPH500C PO (12:13)
--- NOTE | 2018-06-13 12:16 | PDOCDIS ---
Discharge Instructions DIAGNOSIS Discharge Diagnosis 1. Acute metabolic/toxic encephalopathy on chronic dementia likely secondary to UTI and hypoglycemia- improved 2. h/o DM 3. Progressive dementia 4. Hypothyroidism 5. Hypertension 6. History of coronary disease CONDITION [id number] Patient Condition: [id number] Stable HOME CARE INSTRUCTIONS: [id number] Diet Instructions: [id number] Low Fat /Cholesterol FOLLOW UP/APPOINTMENTS Follow-up Plan 1. Follow up with your primary care physician in 1 week 2. Your Lantus was decreased to 20 units a day to avoid low sugar episodes 3. You will need to continue Doxycycline twice a day and Keflex twice a day until 06/16 4. You will need to continue Bactroban in your nares until 06/16 5. Continue all other medications as prescribed 6. If symptoms worsen, please go to your closest emergency department DEMETRIO HART MD Jun 13, 2018 12:16
[2018-06-13] MEDS ORDERED: CEPHALEXIN 500 MG CAP PO SCH (13:30)
--- NOTE | 2018-06-13 14:00 | CONS ---
Assessment/Plan Assessment/Plan Hospital Course Patient is awake and looks comfortable denies pain no fevers overnight no labs this morning Urine culture grew E. coli. Nares swab positive for MRSA. Antimicrobials: Keflex, doxycycline, Bactroban to nares Physical examination: This is well-developed fragile elderly woman who is alert in no distress. Head atraumatic normocephalic sclera nonicteric neck is supple chest rise symmetrical breath sounds clear heart S1-S2 abdomen soft bowel sounds present extremities without cyanosis Assessment: 1. Urinary tract infection 2. MRSA positive nares colonization 3. Status post encephalopathy 4. Hypertension 5. Coronary artery disease with a history of CABG Plan: Patient remained stable, pending discharge to residential facility on current antibiotics for 5 more days Result Diagram: 06/12/18 0506/12/18 05 Results 24hrs Laboratory Tests Test 06/12/18 17:06 06/12/18 20:50 06/13/18 07:45 06/13/18 11:34 Bedside Glucose 139 135 92 142 Consultation Date/Type/Reason Admit Date/Time Jun 10, 2018 at 14:22 Initial Consult Date Type of Consult id Exam/Review of Systems Vital Signs Vitals Vital Signs Date Temp Pulse Resp B/P (MAP) Pulse Ox O2 O2 Flow FiO2 Time Delivery Rate 06/13/18 98.0 57 18 121/54 98 12:24 (76) 06/11/18 Room Air 20:00 Intake and Output 06/12/18 06/12/18 06/13/18 1515:00 23:00 07:00 IntakeIntake Total 1050 ml 300 ml BalanceBalance 1050 ml 300 ml Medications Medications Current Medications IV Flush (NS 3 ml) 3 ml PER PROTOCOL IV ; Start 06/10/18 at 13:00 Ondansetron HCl (Zofran Inj) 4 mg Q6H PRN IV NAUSEA AND/OR VOMITING; Start 06/10/18 at 13:00 Morphine Sulfate (morphine) 2 mg Q4H PRN IV SEVERE PAIN LEVEL 7-10; Start 06/10/18 at 13:00 Diagnostic Test (Pha) (Accu-Chek) 1 ea 02 XX Last administered on 06/11/18at 01:56; Admin Dose 1 EA; Start 06/11/18 at 02:00 Miscellaneous Information 1 ea NOTE XX ; Start 06/10/18 at 13:30 Glucose (Glutose) 15 gm Q15M PRN PO DECREASED GLUCOSE; Start 06/10/18 at 13:30 Glucose (Glutose) 22.5 gm Q15M PRN PO DECREASED GLUCOSE; Start 06/10/18 at 13:30 Dextrose (D50w Syringe) 25 ml Q15M PRN IV DECREASED GLUCOSE; Start 06/10/18 at 13:30 Dextrose (D50w Syringe) 50 ml Q15M PRN IV DECREASED GLUCOSE; Start 06/10/18 at 13:30 Glucagon (Glucagen) 1 mg Q15M PRN IM DECREASED GLUCOSE; Start 06/10/18 at 13:30 Glucose (Glutose) 15 gm Q15M PRN BUCCAL DECREASED GLUCOSE; Start 06/10/18 at 13:30 Sodium Chloride 1,000 ml @ 50 mls/hr Q20H IV Last administered on 06/12/18at 13:12; Admin Dose 50 MLS/HR; Start 06/10/18 at 13:30 Acarbose (Precose) 50 mg WITH MEALS PO Last administered on 06/13/18at 12:01; Admin Dose 50 MG; Start 06/10/18 at 17:55 Aripiprazole (Abilify) 2 mg QHS PO Last administered on 06/12/18 20:54; Admin Dose 2 MG; Start 06/10/18 at 21:00 Atenolol (Tenormin) 25 mg DAILY PO Last administered on 06/13/18 08:47; Admin Dose 25 MG; Start 06/11/18 at 09:00 Atorvastatin Calcium (Lipitor) 20 mg QHS PO Last administered on 06/12/18at 20:54; Admin Dose 20 MG; Start 06/10/18 at 21:00 Bisacodyl (Dulcolax) 10 mg DAILY PRN PO CONSTIPATION; Start 06/10/18 at 13:30 Calcium Carbonate (Oyster Shell Calcium) 1.25 gm DAILY PO Last administered on 06/13/18 08:48; Admin Dose 1.25 GM; Start 06/11/18 at 09:00 Clopidogrel Bisulfate (plaVIX) 75 mg DAILY PO Last administered on 06/13/18 08:47; Admin Dose 75 MG; Start 06/11/18 at 09:00 Cyanocobalamin (Vitamin B12) 200 mcg DAILY PO Last administered on 06/13/18 08:48; Admin Dose 200 MCG; Start 06/11/18 at 09:00 Donepezil HCl (Aricept) 10 mg DAILY PO Last administered on 06/13/18 08:47; Admin Dose 10 MG; Start 06/11/18 at 09:00 Folic Acid (Folic Acid) 1 mg DAILY PO Last administered on 06/13/18 08:47; Admin Dose 1 MG; Start 06/11/18 at 09:00 Isosorbide Mononitrate (Ismo) 10 mg BID PO Last administered on 06/13/18 08:49; Admin Dose 10 MG; Start 06/10/18 at 21:00 Losartan Potassium (Cozaar) 12.5 mg DAILY PO Last administered on 06/13/18 08:49; Admin Dose 12.5 MG; Start 06/11/18 at 09:00 Magnesium Hydroxide (Milk Of Mag) 30 ml DAILY PRN PO CONSTIPATION; Start 06/10/18 at 13:30 Multivit/Ca Carb/ B Cmplx/FA/Prenat (Pili-Remberto) 1 tab DAILY PO Last a dministered on 06/13/18 08:47; Admin Dose 1 TAB; Start 06/11/18 at 09:00 Pregabalin (Lyrica) 75 mg BID PO Last administered on 06/13/18 09:08; Admin Dose 75 MG; Start 06/10/18 at 21:00 Levothyroxine Sodium (Synthroid) 300 mcg BEFORE BREAKFAST PO Last administered on 06/13/18 06:54; Admin Dose 300 MCG; Start 06/11/18 at 07:00 Enoxaparin Sodium (Lovenox) 40 mg DAILY SC Last administered on 06/13/18 08:57; Admin Dose 40 MG; Start 06/12/18 at 09:00 Insulin Aspart (Novolog Insulin Pen) (Adult SC Insulin - Mild Algorithm)... AC MEALS AND BEDTIME SC Last administered on 06/13/18 11:52; Admin Dose 1 UNIT; Start 06/12/18 at 07:25 Mupirocin (Bactroban) 1 applic BID TOP Last administered on 06/13/18 08:50; Admin Dose 1 APPLIC; Start 06/12/18 at 12:30; Stop 1/25/19 at 21:01 Doxycycline Hyclate (Vibramycin) 100 mg BID PO Last administered on 06/13/18at 08:47; Admin Dose 100 MG; Start 06/12/18 at 12:30; Stop 06/16/18 at 21:01 Insulin Glargine (Lantus) 20 units DAILY@2000 SC ; Start 06/13/18 at 20:00 Cephalexin (Keflex) 500 mg BID PO Last administered on 06/13/18at 13:01; Admin Dose 500 MG; Start 06/13/18 at 13:30 Date/Time of Note Date/Time of Note DATE: 06/13/18 TIME: 14:00 SERGEI CARVER NP Jun 13, 2018 14:00
--- NOTE | 2018-06-13 14:17 | NUR ---
MUNIRA notes: MD orders for patient to go back to SNF Patient is aware and agreeable transferring back to [facility] via gurney pickler helper time 3:30pm AMbulnz, accepted by Taj of admissions at [facility], Mane bedside nurse aware of plan and will call to give report.
--- NOTE | 2018-06-13 15:20 | NUR ---
Discharge summary Pt clear for discharge to [facility], given report to Jaylyn. Pt denies c/o pain, no sob or respiratory distress noted. Vital signs are stable. All needs were met. Pt dc to snf w/ atb. pending for ambulance, possibly at 1530
--- NOTE | 2018-06-13 17:39 | DS ---
Date/Time of Note Date/Time of Note DATE: 06/13/18 TIME: 17:38 Discharge Summary Admission/Discharge Info Admit Date/Time Jun 10, 2018 at 14:22 Discharge Date/Time Jun 13, 2018 at 16:21 Discharge Diagnosis 1. Acute metabolic/toxic encephalopathy on chronic dementia likely secondary to UTI and hypoglycemia- improved 2. h/o DM 3. Progressive dementia 4. Hypothyroidism 5. Hypertension 6. History of coronary disease Patient Condition: Stable Consults Infectious disease- Dr Jim Procedures PROCEDURE: CT Brain without contrast. CLINICAL INDICATION: Altered level of consciousness TECHNIQUE: A CT of the brain was performed on a [employer] 64-slice CT scanner utilizing axial imaging from the skull base through the vertex without IV contrast. Images were reviewed on a PACS workstation. The CTDIvol is 39 mGy and the DLP is 634 mGycm. DICOM images are available. One or more of the following dose reduction techniques were utilized: 1.) Automated exposure control 2.) Adjustment of the mA +/- kV according to patient's size 3.) Use of iterative reconstruction technique. COMPARISON: Are head CT November 27, 2015 FINDINGS: There is mild to moderate diffuse cerebral volume loss with sulcal and ventricular dilatation. No discrete extra-axial fluid collection or masses present. Ventricles are in the midline and of normal configuration. There is mild periventricular white matter disease in both cerebral hemispheres. No associated mass effect is seen. There is preservation of normal esposito-white differentiation. No intracranial hemorrhage is noted. There is normal aeration in the visualized paranasal sinuses. IMPRESSION: Atrophy. White matter disease compatible with chronic small vessel ischemia. No intracranial hemorrhage, mass or evidence of acute transcortical infarct. .Jakob Grady MD, MD Date Time Electronically viewed and signed by .Jakob Grady MD, MD on 06/10/2018 11:03 PROCEDURE: Chest x-ray CLINICAL INDICATION: Possible sepsis. TECHNIQUE: VIEWS: 1 COMPARISON: CR CHEST 11/27/2015 FINDINGS: SUPPORT DEVICES: None. CARDIAC AND MEDIASTINAL SILHOUETTES: Cardiomegaly with aortic atherosclerotic calcifications . Median sternotomy with post CABG changes. LUNGS AND PLEURAL SPACE: No infiltrates, consolidation, pulmonary edema or pleural effusion. PNEUMOTHORAX: None. OSSEOUS STRUCTURES: Unremarkable. IMPRESSION: 1. No acute pulmonary disease. 2. Stable cardiomegaly with aortic atherosclerosis and post CABG changes. RPTAT: HRSR Physician Jennyfer Date Time Electronically viewed and signed by Palak Liang Physician on 06/10/2018 10:30 Hx of Present Illness Patient is a 77-year-old female with a history of progressive dementia, CKD, coronary disease status post CABG, diabetes, hypothyroidism, TIA. Patient resides in a [facility] facility and was noted to be altered relative to her baseline, blood sugar was checked and patient was hypoglycemic at 40. Patient was given juice and sugars did stabilize as that her mentation. In the ER sugars have remained stable patient is hypothermic and heating blankets have been placed. Patient is unable to provide any history and history is obtained from previous recommendation and family who is bedside. Patient has no evidence of sepsis, UA is normal as is CT head and chest x-ray. Hospital Course Patient was admitted for treatment of hypothermia and placed under bear hugger with improvement in body temperature. Labs and cultures obtained with findings consistent with UTI which was most likely etiology of patients acute encephalopathy. She was started on IV antibiotics and ID was consulted for antibiotic recommendations. Patients Lantus was adjusted due to poor PO intake and resultant hypoglycemia. Patient remained pleasantly confused but was back to baseline given progressive dementia. Patients vitals remained stable as well as labs. Patients presenting symptoms improved significantly and on day of discharge patients vitals and physical exam were stable. Patient was discharged back to SNF in stable condition. Home Meds Active Scripts Cephalexin* (Cephalexin*) 500 Mg Capsule, 500 MG PO BID for 3 Days, #6 CAP Prov:DEMETRIO HART MD 06/13/18 Mupirocin* (Bactroban*) 2% -22 Gram Oint...g., 1 APPLIC TOP BID for 3 Days, #1 TUB Prov:DEMETRIO HART MD 06/13/18 Doxycycline* (Vibramycin*) 100 Mg Tab, 100 MG PO BID for 3 Days, #7 TAB Prov:DEMETRIO HART MD 06/13/18 Insulin Detemir (Levemir) 100 Unit/1 Ml Vial, 20 UNITS SUBCUTANE QHS for 30 Days , #1 VIAL Prov:DEMETRIO HART MD 06/13/18 Pregabalin* (Lyrica*) 75 Mg Capsule, 75 MG PO BID for 30 Days, CAP Prov:ANA NATH 11/29/15 Reported Medications Cranberry Extract (Cranberry) 425 Mg Capsule, 425 MG PO DAILY, CAP 06/10/18 Clopidogrel Bisulfate (Clopidogrel) 75 Mg Tablet, 75 MG PO DAILY, #30 TAB 06/10/18 Atenolol* (Atenolol*) 25 Mg Tablet, 25 MG PO DAILY, #30 TAB HOLD IF SBP<115 OR HR<60 06/10/18 Aripiprazole* (Abilify*) 2 Mg Tablet, 2 MG PO QHS, #30 TAB 06/10/18 Losartan Potassium* (Losartan Potassium*) 25 Mg Tablet, 12.5 MG PO DAILY, TAB HOLD IF SBP<115 06/10/18 Levothyroxine Sodium* (Levothyroxine Sodium*) 300 Mcg Tablet, 300 MCG PO BEFORE BREAKFAST, #30 TAB 06/10/18 Isosorbide Mononitrate* (Isosorbide Mononitrate*) 20 Mg Tablet, 10 MG PO BID, TAB HOLD IF SBP<115 06/10/18 Folic Acid* (Folic Acid*) 1 Mg Tablet, 1 MG PO DAILY, TAB 06/10/18 Donepezil* (Donepezil*) 10 Mg Tablet, 10 MG PO DAILY, #30 TAB 06/10/18 Dexlansoprazole (Dexilant) 60 Mg Neftaly., 60 MG PO AC BREAKFAST, #30 CAP 06/10/18 Bisacodyl* (Dulcolax*) 5 Mg Tablet.dr, 10 MG PO DAILY PRN for CONSTIPATION, TAB 06/10/18 Linagliptin (TRADJENTA) 5 Mg Tablet, 5 MG PO DAILY, TAB 06/10/18 Calcium Carbonate ([id number]) 500 Mg Tablet, 500 MG PO DAILY, TAB 06/10/18 Amino Acids/Protein Hydrolys (PRO-STAT AWC LIQUID) 887 Ml Liquid, 30 ML PO DAILY 06/10/18 Ergocalciferol (Vitamin D2) (VITAMIN D2) 50,000 Unit Capsule, 05684 UNIT PO WEEKLY, CAP 06/10/18 Cyanocobalamin* (Vitamin B12*) 100 Mcg Tab, 200 MCG PO DAILY, TAB 06/10/18 Multivit/Ca Carb/B Cmplx/Fa* (Pili-Remberto*) 1 Tab Tab, 1 TAB PO DAILY, TAB 06/10/18 Acetaminophen* (Acetaminophen*) 650 Mg Tablet, 650 MG PO Q4 PRN for PAIN, #30 TAB 06/10/18 Magnesium Hydroxide* (Milk Of Magnesia*) 400 Mg/5 Ml Oral.susp, 30 ML PO DAILY PRN for CONSTIPATION, ML 06/10/18 Atorvastatin Calcium* (Atorvastatin Calcium*) 20 Mg Tablet, 20 MG PO QHS, #30 TAB 11/27/15 Acarbose* (Precose*) 50 Mg Tablet, 50 MG PO WITH MEALS, TAB 11/27/15 Discontinued Reported Medications Insulin Aspart* (Novolog Insulin Pen*) 100 Unit/Ml Soln, 0 SC .SLIDING SCALE AC, EA 06/10/18 Multivit/Ca Carb/B Cmplx/Fa* (Pili-Remberto*) 1 Tab Tab, 1 TAB PO DAILY, TAB 06/10/18 Clopidogrel Bisulfate (Clopidogrel) 75 Mg Tablet, 75 MG PO DAILY, #30 TAB 11/27/15 Memantine* (Namenda*) 10 Mg Tablet, 10 MG PO BID, #60 TAB 11/27/15 Escitalopram Oxalate* (Lexapro*) 5 Mg Tablet, 5 MG PO DAILY, #30 TAB 11/27/15 Insulin Aspart* (Novolog Insulin Pen*) 100 Unit/Ml Soln, 0 SC .SLIDING SCALE AC, EA 11/27/15 Docusate Sodium* (Colace*) 250 Mg Capsule, 250 MG PO BID, #60 CAP 11/27/15 Aspirin* (Aspirin* Chew) 81 Mg Tab.chew, 81 MG PO DAILY, TAB.CHEW 11/27/15 Clonidine Hcl* (Clonidine Hcl*) 0.1 Mg Tab, 0.1 MG PO Q6 PRN for ELEVATED BLOOD PRESSURE, TAB 11/27/15 Isosorbide Dinitrate* (Isordil*) 10 Mg Tablet, 30 MG PO BID, TAB 11/27/15 Donepezil* (Aricept*) 5 Mg Tablet, 5 MG PO DAILY, TAB 11/27/15 Valsartan* (Diovan*) 80 Mg Tablet, 80 MG PO DAILY, TAB 11/27/15 Discontinued Scripts Insulin Glargine* (Lantus*) 100 Unit/Ml Soln, 28 UNIT SC QHS for 30 Days Prov:FITO WHEELER NP 12/01/15 Insulin Aspart* (Novolog Insulin Pen*) 100 Unit/Ml Soln, 0 UNIT SC WITH MEALS BEDTIME for 30 Days Prov:ANA NATH 11/29/15 Levothyroxine Sodium* (Synthroid*) 125 Mcg Tablet, 125 MCG PO DAILY@06 for 30 Days, TAB Prov:ANA NATH 11/29/15 Metformin Hcl (Glucophage) 500 Mg Tablet, 500 MG PO AC BREAKFAST DINNER for 30 Days, TAB Prov:ANA NATH 11/29/15 Multivitamins* (Theragran*) 1 Tab Tab, 1 TAB PO QHS for 30 Days, TAB Prov:ANA NATH 11/29/15 Follow-up Plan 1. Follow up with your primary care physician in 1 week 2. Your Lantus was decreased to 20 units a day to avoid low sugar episodes 3. You will need to continue Doxycycline twice a day and Keflex twice a day until 06/16 4. You will need to continue Bactroban in your nares until 06/16 5. Continue all other medications as prescribed 6. If symptoms worsen, please go to your closest emergency department Primary Care Provider Not On Staff Doctor Time spent on discharge: > 30 minutes Pending Labs Laboratory Tests Test 06/12/18 20:50 06/13/18 07:45 06/13/18 11:34 Bedside Glucose 135 mg/dL (70-220) 92 mg/dL (70-220) 142 mg/dL (70-220) DEMETRIO HART MD Jun 13, 2018 17:38
[2018-06-13] MEDS ORDERED: INSULIN GLARGINE [LANTus] (100 UNITS/ML) SYG SC SCH (20:00)
== END 2018-06-13 16:21 | DRG 871 ==
LOC: E/R 09:20 → TEL 14:22
PROVIDERS: ADMIT Internal Medicine; ATTEND Internal Medicine
DX: A41.9 Sepsis, unspecified organism (principal); G92 Toxic encephalopathy; N39.0 Urinary tract infection, site not specified; N17.9 Acute kidney failure, unspecified; F03.90 Unspecified dementia, unspecified severity, without behavioral disturbance, psychotic disturbance, mood disturbance, and anxiety; E11.649 Type 2 diabetes mellitus with hypoglycemia without coma; E03.9 Hypothyroidism, unspecified; I25.10 Atherosclerotic heart disease of native coronary artery without angina pectoris; I10 Essential (primary) hypertension; Z95.1 Presence of aortocoronary bypass graft; T68.XXXA Hypothermia, initial encounter; Z22.322 Carrier or suspected carrier of Methicillin resistant Staphylococcus aureus; B96.20 Unspecified Escherichia coli [E. coli] as the cause of diseases classified elsewhere
CPT/HCPCS: 36415; 70450; 71045; 80048; 80053; 81003; 82962; 83036; 83605; 83735; 84100; 84436; 84479; 84484; 85025; 85610; 85730; 87040; 87081; 87086; 92526; 92610; 93005; 96365; 96366; 96368; 97116; 97162; 97167; 97530; J0692; J0696; J1650; J1815; J3370; J3420; J7030

== ENCOUNTER 2018-10-01 02:44 | Emergency (ER) | payer MEDICARE, OTHER ==
[~2018-10-01] VITALS: Ht 154.9 cm; Wt 66.4 kg
[~2018-10-01 02:44] MED LIST changes: +ACET-2047 PO; +AMIN887L6 PO; +ARIP2TAB17 PO; -ASPI-903 PO; +ATEN-51 PO; +BISA-57 PO; +CALC500T91 PO; +CEPH500C PO; -CLON-379 PO; +CRAN425C6 PO; +CYAN100T PO; +DEXL60CA2 PO; -DOCU250C58 PO; +DONE10TA7 PO; -DONE5TAB46 PO; +DOXY100T2 PO; +ERGO500013 PO; -ESCI5TAB PO; +FOLI-49 PO; +ISM20 PO; -ISOS10TA2 PO; -LANT3I SC; +LEVEM SUBCUTANE; -LEVO125T PO; +LEVO300T5 PO; +LINA5TAB PO; +LOSA25TA12 PO; +MAGN400O19 PO; -MEMA10TA PO; -METF500T PO; -MULTI PO; +MUPI22OI2 TOP; +NEPH PO; -NOVO3I SC; -VALS80TA2 PO
[2018-10-01 03:23] VITALS: Ht 154.9 cm; Wt 66.4 kg
--- NOTE | 2018-10-01 05:02 | ERD ---
ER Documentation Chief Complaint Chief Complaint Witnessed slip/fall in shower, no KO, no ALOC, possible head strike HPI This is an 78-year-old female with history of dementia, who presents for evaluation of mechanical fall that was witnessed, as a slip and fall while in the shower. She had no loss of consciousness, she has at her neurologic baseline she complains of pain over the back of her head, as well as pain along her lower back. At baseline she requires assistance in order to get up and move about. She has no complaint of numbness or tingling. ROS All systems reviewed and are negative except as per history of present illness. Medications Home Meds Active Scripts Cephalexin* (Cephalexin*) 500 Mg Capsule, 500 MG PO BID for 3 Days, #6 CAP Prov:DEMETRIO HART MD 06/13/18 Mupirocin* (Bactroban*) 2% -22 Gram Oint...g., 1 APPLIC TOP BID for 3 Days, #1 TUB Prov:DEMETRIO HART MD 06/13/18 Doxycycline* (Vibramycin*) 100 Mg Tab, 100 MG PO BID for 3 Days, #7 TAB Prov:DEMETRIO HART MD 06/13/18 Insulin Detemir (Levemir) 100 Unit/1 Ml Vial, 20 UNITS SUBCUTANE QHS for 30 Days, #1 VIAL Prov:DEMETRIO HART MD 06/13/18 Pregabalin* (Lyrica*) 75 Mg Capsule, 75 MG PO BID for 30 Days, CAP Prov:ANA NATH 11/29/15 Reported Medications Cranberry Extract (Cranberry) 425 Mg Capsule, 425 MG PO DAILY, CAP 06/10/18 Clopidogrel Bisulfate (Clopidogrel) 75 Mg Tablet, 75 MG PO DAILY, #30 TAB 06/10/18 Atenolol* (Atenolol*) 25 Mg Tablet, 25 MG PO DAILY, #30 TAB HOLD IF SBP<115 OR HR<60 06/10/18 Aripiprazole* (Abilify*) 2 Mg Tablet, 2 MG PO QHS, #30 TAB 06/10/18 Losartan Potassium* (Losartan Potassium*) 25 Mg Tablet, 12.5 MG PO DAILY, TAB HOLD IF SBP<115 06/10/18 Levothyroxine Sodium* (Levothyroxine Sodium*) 300 Mcg Tablet, 300 MCG PO BEFORE BREAKFAST, #30 TAB 06/10/18 Isosorbide Mononitrate* (Isosorbide Mononitrate*) 20 Mg Tablet, 10 MG PO BID, TAB HOLD IF SBP<115 06/10/18 Folic Acid* (Folic Acid*) 1 Mg Tablet, 1 MG PO DAILY, TAB 06/10/18 Donepezil* (Donepezil*) 10 Mg Tablet, 10 MG PO DAILY, #30 TAB 06/10/18 Dexlansoprazole (Dexilant) 60 Mg Cap..mp, 60 MG PO AC BREAKFAST, #30 CAP 06/10/18 Bisacodyl* (Dulcolax*) 5 Mg Tablet.dr, 10 MG PO DAILY PRN for CONSTIPATION, TAB 06/10/18 Linagliptin (TRADJENTA) 5 Mg Tablet, 5 MG PO DAILY, TAB 06/10/18 Calcium Carbonate ([id number]-Udy-840) 500 Mg Tablet, 500 MG PO DAILY, TAB 06/10/18 Amino Acids/Protein Hydrolys (PRO-STAT AWC LIQUID) 887 Ml Liquid, 30 ML PO DAILY 06/10/18 Ergocalciferol (Vitamin D2) (VITAMIN D2) 50,000 Unit Capsule, 89767 UNIT PO WEEKLY, CAP 06/10/18 Cyanocobalamin* (Vitamin B12*) 100 Mcg Tab, 200 MCG PO DAILY, TAB 06/10/18 Multivit/Ca Carb/B Cmplx/Fa* (Pili-Remberto*) 1 Tab Tab, 1 TAB PO DAILY, TAB 06/10/18 Acetaminophen* (Acetaminophen*) 650 Mg Tablet, 650 MG PO Q4 PRN for PAIN, #30 TAB 06/10/18 Magnesium Hydroxide* (Milk Of Magnesia*) 400 Mg/5 Ml Oral.susp, 30 ML PO DAILY PRN for CONSTIPATION, ML 06/10/18 Atorvastatin Calcium* (Atorvastatin Calcium*) 20 Mg Tablet, 20 MG PO QHS, #30 TAB 11/27/15 Acarbose* (Precose*) 50 Mg Tablet, 50 MG PO WITH MEALS, TAB 11/27/15 Allergies Allergies: Coded Allergies: propranolol (Verified Allergy, Severe, 06/10/18) PMhx/Soc Anesthesia Reaction: No Hx Neurological Disorder: No Hx Respiratory Disorders: Yes (COPD) Hx Cardiac Disorders: Yes (CAD W/ STENTS) Hx Psychiatric Problems: No Hx Miscellaneous Medical Probl: Yes (pls see EMR) Hx Alcohol Use: No Hx Substance Use: No Hx Tobacco Use: No Smoking Status: Never smoker Physical Exam Vitals Vital Signs Date Temp Pulse Resp B/P (MAP) Pulse Ox O2 O2 Flow FiO2 Time Delivery Rate 10/01/18 98.3 60 16 137/50 99 Room Air 05:51 (79) 10/01/18 97.6 56 16 139/46 99 Room Air 03:43 (77) 10/01/18 97.6 56 16 139/46 99 03:23 (77) Physical Exam Const: Pleasant, well-developed well-nourished elderly appearing female, in no acute distress Head: Atraumatic, there are no scalp hematomas, Eyes: Normal Conjunctiva ENT: Normal External Ears, Nose and Mouth. Midface is stable, there is no evidence of facial injuries, no periorbital ecchymosis Neck: Full range of motion. No meningismus. There is no C-spine midline tenderness or step-off Resp: Clear to auscultation bilaterally, no wheezes rales rhonchi Cardio: Regular rate and rhythm, no murmurs Abd: Soft, non tender, non distended. Normal bowel sounds Skin: No petechiae or rashes Back: No midline or flank tenderness Ext: No cyanosis, or edema, there is full range of motion of the hips, there is no bony tenderness, strength is 5 out of 5 in both extremities Neur: Awake and alert Psych: Normal Mood and Affect Procedures/MDM 78-year-old female presents for evaluation of mechanical fall without loss of consciousness or altered mental state. Given her age CT brain Noncon was performed to evaluate for intracranial injury this was negative, CT of the L- spine was also performed, which showed no acute injuries, on reassessment the patient had no new complaints, and was stable for discharge back to her facility, plan of care was discussed with the patient and her family, at discharge patient no distress. Departure Diagnosis: Primary Impression: Fall Encounter type: initial encounter Qualified Codes: W19.XXXA - Unspecified fall, initial encounter Condition: Stable JESUS DUTTON MD October 01, 2018 05:01
[2018-10-01 05:51] VITALS: BP 137/50; PULSE 60; RESP 16
== END 2018-10-01 07:33 | disposition home or self-care (01) ==
LOC: E/R 02:44
DX: M54.5 Low back pain (principal); J44.9 Chronic obstructive pulmonary disease, unspecified; I25.10 Atherosclerotic heart disease of native coronary artery without angina pectoris; E11.9 Type 2 diabetes mellitus without complications; Z79.01 Long term (current) use of anticoagulants; Z79.4 Long term (current) use of insulin; Z98.61 Coronary angioplasty status
CPT/HCPCS: 70450; 72131